=== PATIENT | female | born 1955 | race Caucasian/White ===

== ENCOUNTER 2021-02-23 09:46 | Outpatient (REF) | payer MEDICARE, SELFPAY ==
[2021-02-23 12:28] LABS: Cholesterol 135 mg/dL; HDL Cholesterol 52 mg/dL; LDL Cholesterol Calculated 73 mg/dl; Triglycerides 53 mg/dL
== END 2021-02-23 09:47 | disposition home or self-care (01) ==
LOC: HO.HMGCLDS 09:46
PROVIDERS: PCP Internal Medicine; Visit Provider Internal Medicine
DX: E78.00 Pure hypercholesterolemia, unspecified (principal)
CPT/HCPCS: 36415; 80061

== ENCOUNTER → 2022-02-09 08:34 | Outpatient (BNVA) | payer MEDICARE, SELFPAY | PROVIDERS: PCP Internal Medicine; Referring Provider Internal Medicine; Visit Provider Surgery | DX: N61.1 Abscess of the breast and nipple (principal) | CPT/HCPCS: 10060; 10061; 99202 ==

== ENCOUNTER 2022-02-09 15:24 | Outpatient (REF) | payer MEDICARE, SELFPAY | END 2022-02-09 15:25 | disposition home or self-care (01) | LOC: HO.LNP 15:24 | PROVIDERS: Visit Provider Surgery | DX: N61.1 Abscess of the breast and nipple (principal) | CPT/HCPCS: 87071; 87077; 87186; 87205 ==

== ENCOUNTER 2023-06-14 11:44 | Outpatient (AMB) | payer MEDICARE, SELFPAY ==
[2023-06-14 12:20] VITALS: BP 136/80; PULSE 102; O2SAT 98; BMI 28.9
--- NOTE | 2023-06-14 12:20 | AM.OFFWIN_ITS ---
Intake Vital Signs 06/14/23 12:20 Height 5 ft 2 in Weight 158 lb BMI 28.9 BP 136/80 Blood Pressure Location Rt brachial Position Sitting Pulse 102 H Pulse Source Pulse Oximeter Pulse Oximetry (%) 98 Intake Visit Reasons: EST/ear infection/ lower back pain Intake Note: pt is here for c/o ear infection lower back pain Patient Tobacco Use Status: Never used Tobacco Allergies Codeine Adverse Reaction (Unknown, Uncoded 06/14/23 12:20) Itchy Do you need a note to return to daycare/school/sports/work: Yes HPI EST/ear infection/ lower back pain HPI Details 67-year-old [facility]. Reports a 4 day history of bilateral ear pressure, dry cough, lower back ache, feelings of being hot/cold. Denies any fever when taking temperature. Denies any shortness of breath or GI symptoms. [facility] Medical History Abscess of breast, right Breast CA Breast lump STEMI (ST elevation myocardial infarction) History of mammogram Hyperlipidemia Osteoporosis HTN (hypertension) Surgical History History of lumpectomy of right breast (~2020) History of surgery on wrist H/O colonoscopy No pertinent past surgical history Family History Father Cancer Mother No problems noted. Social History Alcohol intake: current Alcohol intake frequency: holidays/special occasions only Patient Tobacco Use Status: Never used Tobacco Review of Systems Const All systems reviewed & are unremarkable except as noted in HPI and below Physical Exam Vital Signs: Last Vital Signs Pulse 102 H 06/14/23 12:20 BP 136/80 06/14/23 12:20 Pulse Ox 98 06/14/23 12:20 BMI result Body Mass Index 28.9 Const General: cooperative, healthy appearing and comfortable Nutritional Appearance: average body habitus HEENT Head: Yes normal to inspection and Yes normocephalic Ears: hearing grossly normal bilaterally, external ears normal and TM's normal bilaterally General nose exam: Normal external nose present and Normal nasal mucous membranes and turbinates present Face and sinus: Yes normal facial exam and Yes sinuses nontender Mouth: Normal oral and palatal mucosa present and moist mucous membranes Throat: Yes posterior oropharynx normal Neck Neck: Yes no lymphadenopathy Resp Effort & Inspection: normal respiratory effort, able to speak in complete sentences and Actively coughing Quality: dry Auscultation: clear to auscultation bilaterally Cardio Jugular venous distension: no JVD Palpation: normal PMI Rate: regular rate Rhythm: regular rhythm Back/Spine/Pelvis Other: Mild bilateral lumbar paraspinal muscle tenderness. Normal lumbar range of motion. No vertebral tenderness. Negative straight leg raise. Skin General skin exam: no rashes or lesions noted Extrem General: Yes capillary refill normal and Yes no clubbing, cyanosis or edema Psych Appearance: grossly normal Mental Status: mental status grossly normal Speech and movement: Normal speech and movement present Assessment & Plan Assessment & Plan (1) Upper respiratory infection: Code(s): J06.9 - Acute upper respiratory infection, unspecified Qualifiers: URI type: unspecified viral URI Qualified Code(s): J06.9 - Acute upper respiratory infection, unspecified Plan: Symptoms consistent with viral illness. Encouraged she continue to rest, hydrate, utilize Tylenol/Motrin as needed. Has taken home COVID test which was negative. Denies any further viral testing. If she does not improve with conservative measures, or symptoms worsen or new symptoms develop, she should return to the clinic for further evaluation. (2) Spasm of muscle of lower back: Code(s): M62.830 - Muscle spasm of back Plan: She has had a persistent dry cough, which is most severe at nighttime. I will start her on benzonatate for this. She also has some tightness/tenderness in her lower lumbar paraspinal musculature. This may be due to her frequent coughing. Lumbar exam is otherwise normal. I will start her on a short course of cyclobenzaprine to take at bedtime for these muscle spasms. We reviewed indications, use, possible side effects of medications. She will follow-up with us or PCP if this worsens or does not improve. She agrees to plan. Medications: New cyclobenzaprine Take once a day as needed for lower back muscle pain/spasms. 10 mg PO BEDTIME PRN 7 tabs 0RF muscle spasm 7 days M62.830 - Muscle spasm of back benzonatate Take twice a day as needed for cough. 100 mg PO BID PRN 14 caps 0RF cough 7 days R05.9 - Cough, unspecified Coding Level of Care Code Est Pt Level 3 (13164) Diagnoses Viral upper respiratory tract infection J06.9 URI type: unspecified viral URI Spasm of muscle of lower back M62.830
== END 2023-06-14 12:56 | disposition home or self-care (01) ==
PROVIDERS: PCP Internal Medicine; Visit Provider Nurse Practitioner Family
DX: J06.9 Acute upper respiratory infection, unspecified (principal); M62.830 Muscle spasm of back
CPT/HCPCS: 99213

== ENCOUNTER 2024-02-14 11:34 | Outpatient (AMB) | payer MEDICARE, SELFPAY ==
--- NOTE | 2024-02-14 12:25 | AM.OFFWIN_ITS ---
Intake Vital Signs 02/14/24 12:26 Height 5 ft 2 in BP 130/80 Blood Pressure Location Rt brachial Position Sitting Pulse 80 Pulse Source Pulse Oximeter Temp 99.1 F Temp Source Oral Pulse Oximetry (%) 97 Oxygen Delivery Method Room Air Intake Visit Reasons: EP lft ear hearing loss Intake Note: pt is here for left side hearing loss Patient Tobacco Use Status: Never used Tobacco Allergies Codeine Adverse Reaction (Unknown, Uncoded 02/14/24 12:26) Itchy Do you need a note to return to daycare/school/sports/work: No HPI HPI Comments History of Present Illness Details 68 y/o female patient who presents to [facility] in clinic with c/o hard of hearing on both ears - left worse than right. Reports hearing Muffled sounds on left ear. Denies head trauma or injury. Denies dizziness, headaches, nausea or vomiting. She does endorse feeling dizziness and unbalanced. [facility] Medical History Abscess of breast, right Breast CA Breast lump STEMI (ST elevation myocardial infarction) History of mammogram Hyperlipidemia Osteoporosis HTN (hypertension) Surgical History History of lumpectomy of right breast (~2020) History of surgery on wrist H/O colonoscopy No pertinent past surgical history Family History Father Cancer Mother No problems noted. Social History Alcohol intake: current Alcohol intake frequency: holidays/special occasions only Patient Tobacco Use Status: Never used Tobacco Review of Systems Const All systems reviewed & are unremarkable except as noted in HPI and below Physical Exam Vital Signs: Last Vital Signs Temp 99.1 F 02/14/24 12:26 Pulse 80 02/14/24 12:26 BP 130/80 02/14/24 12:26 Pulse Ox 97 02/14/24 12:26 Oxygen Delivery Method Room Air 02/14/24 12:26 Const General: comfortable and no acute distress Nutritional Appearance: obese Orientation/consciousness: patient oriented x3 HEENT Head: Yes normocephalic Ears: external ears normal and TM abnormal bulging and with fluid behind the TM bilateral; not bullous, not dull, not with effusion, not perforated and not retracted General nose exam: Normal nasal mucous membranes and turbinates present Face and sinus: Yes sinuses nontender Mouth: moist mucous membranes Throat: Yes posterior oropharynx normal Resp Effort & Inspection: normal respiratory effort Auscultation: clear to auscultation bilaterally Cardio Rate: regular rate Rhythm: regular rhythm Neuro General: patient oriented x3 Assessment & Plan Assessment & Plan (1) Decreased hearing of both ears: Code(s): H91.93 - Unspecified hearing loss, bilateral Plan: - Advised to have hearing testing - Fluid behind both ears - Use Decongestant - no signs of infection (2) Vertigo: Code(s): R42 - Dizziness and giddiness Plan: - Prescribed Meclizine. Medications: New pseudoephedrine HCl ER (Long Acting Nasal Decongestant (PSE)) 120 mg PO Q12H 60 tabs 0RF H91.93 - Unspecified hearing loss, bilateral, R42 - Dizziness and giddiness meclizine 25 mg PO BID PRN 30 tabs 0RF dizziness R42 - Dizziness and giddiness Coding Level of Care Code Est Pt Level 3 (88812) Diagnoses Decreased hearing of both ears H91.93 Vertigo R42 Time Spent (min) 15
[2024-02-14 12:26] VITALS: BP 130/80; PULSE 80; TEMP 37.3; O2SAT 97
== END 2024-02-14 13:22 | disposition home or self-care (01) ==
PROVIDERS: PCP Internal Medicine; Visit Provider Nurse Practitioner Family
DX: H91.93 Unspecified hearing loss, bilateral (principal); R42 Dizziness and giddiness
CPT/HCPCS: 99213

== ENCOUNTER 2024-03-04 11:26 | Outpatient (AMB) | payer MEDICARE, SELFPAY ==
--- NOTE | 2024-03-04 11:31 | MHC.PC.OV ---
Vital Signs 03/04/24 11:33 Height 5 ft 2 in Weight 160 lb BMI 29.3 BP 128/84 Blood Pressure Location Lt brachial Position Sitting Pulse 73 Pulse Source Pulse Oximeter Pulse Oximetry (%) 98 Oxygen Delivery Method Room Air Intake Visit Reasons: pe Intake Note: pt is here for annual PE. Bone density 06/14/11. Colonoscopy 03/27/17. Mammogram 02/14/24 Allergies Codeine Adverse Reaction (Unknown, Uncoded 03/04/24 11:51) Itchy Medication List - Last Reconciled 03/04/24 by EFRAIN An atorvastatin 80 mg PO DAILY meclizine 25 mg PO BID PRN metoprolol succinate ER 75 mg PO tamoxifen 20 mg PO DAILY Tobacco use date assessed: 03/04/24 Fall risk assessment: No Falls in past year Dental Screening Dental Screen Date: 03/04/24 Did you have a dental visit in the last 12 months?: Yes Did you have a dental problem in the last 6 months where you did not have access to dental care?: No Was dental information given to patient?: Patient has dentist HPI HPI Comments History of Present Illness Details Patient is a 68-year-old female who I am meeting for the 1st time in for physical exam. Due for bone DEXA scan- will order. Last Colonoscopy was in 2017 with indication for 5 month follow up. Not clear if patient performed this. No records. Will order. Patient is up-to-date with tetanus. She has declined the prevnar 20 vaccine. Has a history of breast cancer right breast, currently being followed by [facility]. Patient is up-to-date on mammogram. She is taking tamoxifen 20mg po daily. History of VA with stem in the OM1 artery- [facility]. Goal of LDL under 70. Taking metoprolol and atorvastatin 80mg. Hypertension- Taking metoprolol 75 mg PO daily. Dizziness and balance problems- Patient was seen in the walk in clinic 3 weeks prior for left ear pain, diminished hearing in left ear, and balance issues. Patient was given referral to speech and hearing. On presentation appointment today she states the ear pain has resolved however she still has diminished hearing on the left side. Has utilize Meclizine with no effect. Patient negative neuro evaluation today, however she does have balance and gait disturbances when tandem walking. Will order labs and CT scan. Patient denies headache, chest pain, dizziness, numbness, nausea, vomiting and diarrhea. Denies any head trauma. [facility] Medical History (Updated 03/04/24 @ 13:14 by EFRAIN An) HTN (hypertension) Abscess of breast, right Breast CA Breast lump STEMI (ST elevation myocardial infarction) History of mammogram Hyperlipidemia Osteoporosis Surgical History History of lumpectomy of right breast (~2020) History of surgery on wrist H/O colonoscopy No pertinent past surgical history Family History Father Cancer Mother No problems noted. Social History Housing: House Alcohol intake: current Alcohol intake frequency: holidays/special occasions only Patient Tobacco Use Status: Former Tobacco user e-Cigarette/Vaping Use: Never Used service: No Current occupational status: retired Current occupational exposures/hazards: No Cognitive needs: No Hearing needs: No Vision needs: Yes Questionnaire PHQ-9 Over the last 2 weeks, how often have you been bothered by any of the following problems? 1. Little interest or pleasure in doing things: not at all 2. Feeling down, depressed, or hopeless: not at all 3. Trouble falling or staying asleep, or sleeping too much: not at all 4. Feeling tired or having little energy: not at all 5. Poor appetite or overeating: not at all 6. Feeling bad about yourself - or that you are a failure or have let yourself or your family down: not at all 7. Trouble concentrating on things, such as reading the newspaper or watching television: not at all 8. Moving or speaking so slowly that other people could have noticed. Or the opposite - being so fidgety or restless that you have been moving around a lot more than usual: not at all 9. Thoughts that you would be better off or of hurting yourself in some way: not at all Total score: 0 Depression Screening Interpretation: Negative Depression Screening Done: Yes 45221 - PHQ-9 Billing: Yes Source: Developed by Drs. Viraj L. DaneMelissa hinson Kurt Kroenke and colleagues, with an educational emir from [employer] AUDIT C Alcohol Use Questionnaire (AUDIT-C) 1. How often do you have a drink containing alcohol?: Never Total Score: 0 GUERDA-7 AMB Questionnaire GUERDA-7 Date GUERDA - 7 assessed: 03/04/24 Feeling nervous, anxious, or on edge: 0 = Not at all Not being able to stop or control worryin = Not at all Worrying too much about different things: 0 = Not at all Trouble relaxin = Not at all Being so restless that it is hard to sit still: 0 = Not at all Becoming easily annoyed or irritable: 0 = Not at all Feeling afraid as if something awful might happen: 0 = Not at all Total GUERDA-7 score (0-4 normal; 5-9 mild; 10-14 moderate; 15-21 severe): 0 Source: Developed by Melissa Murguia Kurt Kroenke and colleagues, with an educational emir from [employer] GUERDA-7 Assessment Billing GUERDA-7 Assessment Tool: GUERDA-7 Assessment 12859 Review of Systems Const All systems reviewed & are unremarkable except as noted in HPI and below Neuro Denies Sensory deficit (Neuro) Physical exam (Primary Care) Vital Signs: Last Vital Signs Pulse 73 03/04/24 11:33 BP 128/84 03/04/24 11:33 Pulse Ox 98 03/04/24 11:33 Oxygen Delivery Method Room Air 03/04/24 11:33 Care Plan Goal for BP management: Blood pressure is controlled. BMI result Body Mass Index 29.3 Tobacco/Smoking Status: Tobacco use Status Tobacco use date assessed 03/04/24 03/04/24 11:41 Patient Tobacco Use Status Former Tobacco user 03/04/24 11:41 e-Cigarette/Vaping Use Never Used 03/04/24 11:41 PHQ-9: PHQ-9 Score PHQ-9: Total score 0 03/04/24 11:47 Depression Screening Interpretation: Negative Forms completed: Health Care Proxy and MOLST Time spent: 16-45 minutes Actual minutes spent: 17 Const General: cooperative and no acute distress Orientation/consciousness: patient oriented x3 Limitations: no limitations HENMT Head: Yes normal to inspection and Yes normocephalic General nose exam: Normal external nose present Face and sinus: Yes normal facial exam Eyes Sclerae: sclerae normal Corneas: corneas normal Pupils: Equal, round and reactive pupils present EOM: EOMs intact bilaterally Direct Ophthalmoscopy: normal light reflex, no photophobia and no papilledema Neck Neck: Yes normal visual inspection and Yes full ROM Chest Chest palpation & inspection: normal inspection of the chest Resp Effort & Inspection: normal respiratory effort Auscultation: clear to auscultation bilaterally Cardio Rate: regular rate Rhythm: regular rhythm Heart sounds: S1 normal heart sound present and S2 normal heart sound present Peripheral pulses: Peripheral pulses 2+ throughout GI Inspection: Yes normal to inspection Auscultation: normal bowel sounds Rectal Exam - Female: deferred General: Yes no CVA tenderness Back/Spine/Pelvis Back: no CVA tenderness Cervical Spine: normal cervical lordosis Thoracic/Lumbar Spine: thoracic and lumbar spine normal to inspection Skin General skin exam: no rashes or lesions noted Neuro General: patient oriented x3, no focal motor deficits, CN's II-XI intact bilaterally, deep tendon reflexes 2+ bilaterally and No Phill Hallpike Cranial nerves: Yes CN's II-XII intact bilaterally, Yes Equal, round and reactive pupils present and Yes Bilaterally intact EOM present Cognition (Neuro): normal cognition Gait exam (Neuro): Other gait observations present (slight balance problems with tandem walking) Motor exam (neuro): 5/5 motor strength present throughout Sensory Exam: double simultaneous stimulation for sensation normal; No Sensory deficit (Neuro) Romberg Test: Negative Psych Thought process: Normal thought process present Thought content: Normal thought content present Insight: Good insight present (Psych) Judgement: Good judgement present (Psych) Assessment and Plan Assessment & Plan (1) Encounter for routine adult physical exam with abnormal findings: Comment: Will order fasting labs. Due for bone DEXA scan- will order. Last Colonoscopy was in 2017 with indication for 5 month follow up. Not clear if patient performed this. No records. Will order. Patient is up-to-date with tetanus. She has declined the prevnar 20 vaccine. Code(s): Z00.01 - Encounter for general adult medical examination with abnormal findings (2) Hearing loss: Comment: Patient has upcoming appointment with speech and hearing in 2 days. Will also refer patient to ENT. Code(s): H91.90 - Unspecified hearing loss, unspecified ear Qualifiers: Hearing loss type: unspecified Laterality: left Qualified Code(s): H91.92 - Unspecified hearing loss, left ear (3) Breast CA: Comment: Patient sees hematology oncology [facility] Code(s): C50.919 - Malignant neoplasm of unspecified site of unspecified female breast Qualifiers: Breast location: unspecified site of breast Estrogen receptor status: unspecified Patient sex: female Laterality: unspecified laterality Qualified Code(s): C50.919 - Malignant neoplasm of unspecified site of unspecified female breast (4) HTN (hypertension): Comment: Control with metoprolol 75 mg p.o. daily. Code(s): I10 - Essential (primary) hypertension Qualifiers: Hypertension type: primary hypertension Qualified Code(s): I10 - Essential (primary) hypertension (5) Balance problem: Comment: Patient negative neuro exam in office today. Negative [place]-Hallpike maneuver. Patient has a slight discoordination with tandem walking. Patient has evaluation with speech and hearing, as well as referral to ear nose throat. Patient will also get ordered CT scan. Code(s): R26.89 - Other abnormalities of gait and mobility Plan: draw labs Plan will follow up with results. Orders: Orders XR DEXA axial skeleton Today Z78.0 - Asymptomatic menopausal state TSH reflex Free T4 Today Z13.29 - Encounter for screening for other suspected endocrine disorder Complete Blood Count Auto Diff Today Z13.0 - Encounter for screening for diseases of the blood and blood-forming organs and certain disorders involving the immune mechanism Comprehensive Met. Panel Today Z91.89 - Other specified personal risk factors, not elsewhere classified Vitamin D 25-OH (D2 and D3) Today Z13.21 - Encounter for screening for nutritional disorder Vitamin B6 Today Z13.21 - Encounter for screening for nutritional disorder Vitamin B12 Today Z13.21 - Encounter for screening for nutritional disorder UA CC w/rflx Micro + Cult Today Z13.89 - Encounter for screening for other disorder Lipid Panel Today Z13.220 - Encounter for screening for lipoid disorders Referrals Gastroenterology Referral Z12.11 - Encounter for screening for malignant neoplasm of colon Ear/Nose/Throat Referral H91.90 - Unspecified hearing loss, unspecified ear Coding Level of Care Code Est Pt Prev Care >65y(54697) Diagnoses Encounter for routine adult physical exam with abnormal findings Z00.01 Hearing loss of left ear, unspecified hearing loss type H91.92 Hearing loss type: unspecified Laterality: left Malignant neoplasm of female breast, unspecified estrogen receptor status, unspecified laterality, unspecified site of breast C50.919 Breast location: unspecified site of breast Estrogen receptor status: unspecified Patient sex: female Laterality: unspecified laterality Primary hypertension I10 Hypertension type: primary hypertension Balance problem R26.89 Additional Codes GUERDA-7 Assessment Billing - GUERDA-7 Assessment Tool: GUERDA-7 Assessment 56897 ([id number]) Vital Signs *Quality* - Time spent: 16-45 minutes ([id number]) Time Spent (min) 35
[2024-03-04 11:33] VITALS: BP 128/84; PULSE 73; O2SAT 98; BMI 29.3
== END 2024-03-04 14:48 | disposition home or self-care (01) ==
PROVIDERS: PCP Internal Medicine; Visit Provider Nurse Practitioner Primary Care
DX: Z00.00 Encounter for general adult medical examination without abnormal findings (principal); H91.92 Unspecified hearing loss, left ear; C50.919 Malignant neoplasm of unspecified site of unspecified female breast; I10 Essential (primary) hypertension; R26.89 Other abnormalities of gait and mobility
CPT/HCPCS: 99397; 99497

== ENCOUNTER 2024-03-05 08:49 | Outpatient (REF) | payer MEDICARE, SELFPAY ==
[2024-03-05 10:15] LABS: MANUAL DIFF FLAG NO
[2024-03-05 10:26] LABS: Basophils Percent Auto 0.3 % (0-2); Eosinophils Absolute Auto 0.2 X10*3/uL (0.0-0.4); Eosinophils Percent Auto 2.2 % (0-4); Hematocrit 43.4 % (37.0-47.0); Hemoglobin 15.1 g/dl (12.0-16.0); Imm Gran Abs Auto 0.02 X10*3/uL (0.00-0.03); Imm Gran Pct Auto 0.3 % (0.0-0.4); Lymphocytes Absolute Auto 1.3 X10*3/uL (1.2-4.9); Lymphocytes Percent Auto 18.2 % (20-40); Mean Corpuscular HGB Conc 34.8 g/dl (31.0-35.0); Mean Corpuscular Hemoglobin 30.4 pg (27.0-33.0); Mean Corpuscular Volume 87.5 fL (80.0-98.0); Mean Platelet Volume 9.6 fL (9.4-12.3); Monocytes Absolute Auto 0.4 X10*3/uL (0.1-1.2); Monocytes Percent Auto 5.1 % (2-11); Neutrophils Absolute Auto 5.1 x10*3/uL (2.0-8.3); Neutrophils Percent Auto 73.9 % (45-73); Platelet Count 182 X10*3/uL (160-400); Red Blood Count 4.96 X10*6/uL (4.20-5.50); Red Cell Distribution Width 12.3 % (11.0-16.0); White Blood Count 6.9 X10*3/uL (4.8-10.8)
[2024-03-05 10:32] LABS: Appearance Urine Clear; Color Urine Yellow; Glucose Urine UA Negative (Negative); Leukocyte Esterase Urine Negative (Negative); Nitrite Urine Negative (Negative); UMIC TRIGGER UACC YES; Urine Blood Small (1+) (Negative); Urine Ketones Negative (Negative); Urine Protein Negative (Neg-Trace)
[2024-03-05 10:37] LABS: Bacteria Urine None Seen (None Seen); Hyaline Casts Urine 0-2 /LPF (0-2); RBC Urine >20 /HPF (0-2); Squamous Epithelial Cell Urine 0-2 /HPF (0-2); WBC Urine 0-5 /HPF (0-5)
[2024-03-05 11:02] LABS: Alanine Aminotransferase 16 U/L (0-31); Albumin Level 4.1 g/dL (3.5-5.0); Alkaline Phosphatase 63 U/L (39-117); Anion Gap 11 (12-20); Aspartate Amino Transferase 17 U/L (5-31); Bilirubin Total 0.5 mg/dL (0.0-1.0); Blood Urea Nitrogen 18 mg/dL (9-16); Calcium 9.1 mg/dL (8.4-10.2); Carbon Dioxide 29 mmol/L (22-29); Chloride 109 mmol/L (96-108); Cholesterol 167 mg/dL (<200); Estimated Glomerular Filt Rate > 60; Glucose Random 104 mg/dL (60-115); HDL Cholesterol 53 mg/dL (>40); LDL Cholesterol Calculated 91 mg/dL (<100); Potassium 4.2 mmol/L (3.3-5.1); Sodium 145 mmol/L (135-145); Total Protein 6.7 g/dL (6.5-8.0); Triglycerides 119 mg/dL (<150)
[2024-03-05 11:08] LABS: TSH reflex Free T4 2.08 uIU/mL (0.32-4.0)
[2024-03-05 12:20] LABS: Vitamin B12 473 pg/mL (200-900)
[2024-03-09 13:14] LABS: Vitamin D 25-OH, D2 <4 ng/mL; Vitamin D 25-OH, D3 41 ng/mL; Vitamin D 25-OH, Total 41 ng/mL (30-100)
== END 2024-03-05 08:50 | disposition home or self-care (01) ==
LOC: HO.HMGCLDS 08:49
PROVIDERS: PCP Internal Medicine; Visit Provider Nurse Practitioner Primary Care
DX: Z13.21 Encounter for screening for nutritional disorder (principal); R26.89 Other abnormalities of gait and mobility; Z13.29 Encounter for screening for other suspected endocrine disorder; Z13.0 Encounter for screening for diseases of the blood and blood-forming organs and certain disorders involving the immune mechanism; Z91.89 Other specified personal risk factors, not elsewhere classified; Z13.220 Encounter for screening for lipoid disorders
CPT/HCPCS: 36415; 80053; 80061; 81001; 82306; 82607; 84207; 84443; 85025

== ENCOUNTER 2024-03-06 15:40 | Outpatient (REF) | payer MEDICARE, SELFPAY | END 2024-03-06 15:41 | disposition home or self-care (01) | LOC: HO.SH 15:40 | PROVIDERS: Visit Provider Internal Medicine | DX: Z01.118 Encounter for examination of ears and hearing with other abnormal findings (principal); H90.3 Sensorineural hearing loss, bilateral | CPT/HCPCS: 92557; 92567 ==

== ENCOUNTER 2024-03-11 09:42 | Outpatient (REF) | payer MEDICARE, SELFPAY ==
[2024-03-11 12:15] LABS: Urine Cytology See Pathology rpt
[2024-03-11 12:27] LABS: Appearance Urine Hazy; Color Urine Yellow; Glucose Urine UA Negative (Negative); Leukocyte Esterase Urine Negative (Negative); Nitrite Urine Negative (Negative); Specific Gravity - Urine >= 1.030 (1.005-1.025); Urine Blood Negative (Negative); Urine Ketones Trace mg/dL (Negative); Urine Protein Negative (Neg-Trace)
== END 2024-03-11 09:43 | disposition home or self-care (01) ==
LOC: HO.HMGCLDS 09:42
PROVIDERS: PCP Internal Medicine; Visit Provider Nurse Practitioner Primary Care
DX: R31.9 Hematuria, unspecified (principal); Z13.89 Encounter for screening for other disorder
CPT/HCPCS: 81003; 88112

== ENCOUNTER 2024-04-17 10:38 | Outpatient (AMB) | payer MEDICARE, SELFPAY ==
[2024-04-17 10:55] VITALS: BP 125/75; PULSE 82; O2SAT 97; BMI 28.9
--- NOTE | 2024-04-17 10:55 | MHC.PC.OV ---
Vital Signs 04/17/24 10:55 Height 5 ft 2 in Weight 158 lb BMI 28.9 BP 125/75 Blood Pressure Location Rt brachial Position Sitting Pulse 82 Pulse Source Pulse Oximeter Pulse Oximetry (%) 97 Oxygen Delivery Method Room Air Intake Visit Reasons: Hospital follow up Intake Note: Pt is here today for Hospital follow up visit. Allergies Codeine Adverse Reaction (Unknown, Uncoded 04/17/24 11:10) Itchy Medication List - Last Reconciled 04/17/24 by Kelly Lyons MD atorvastatin 80 mg PO DAILY metoprolol succinate ER 75 mg PO tamoxifen 20 mg PO DAILY Tobacco use date assessed: 04/17/24 Fall risk assessment: 2 + Falls in past year Last assessed Fall Risk: 04/17/24 Dental Screening Dental Screen Date: 04/17/24 Did you have a dental visit in the last 12 months?: Yes Did you have a dental problem in the last 6 months where you did not have access to dental care?: No Was dental information given to patient?: Patient has dentist HPI Hospital follow up HPI Details Patient presents for the follow-up of hospitalization at [facility]. She was admitted with a complaint of unsteady gait , underwent neuro workup including CT and MRI of the brain consistent with normal-pressure hydrocephalus. 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 She has started physical therapy as outpatient. Patient reports improved gait and denies headaches weakness or numbness in extremities or change in bladder or bowel function. She has been taking atorvastatin and metoprolol for history of coronary artery disease and tamoxifen for history of breast cancer. [facility] Medical History (Updated 04/17/24 @ 13:03 by Kelly Lyons MD) Hyperlipidemia Acute hearing loss HTN (hypertension) Breast CA STEMI (ST elevation myocardial infarction) History of mammogram Osteoporosis Surgical History History of lumpectomy of right breast (~2020) History of surgery on wrist H/O colonoscopy No pertinent past surgical history Family History Father Cancer Mother No problems noted. Social History Housing: House Alcohol intake: current Alcohol intake frequency: holidays/special occasions only Patient Tobacco Use Status: Former Tobacco user e-Cigarette/Vaping Use: Never Used service: No Current occupational status: retired Current occupational exposures/hazards: No Cognitive needs: No Hearing needs: No Vision needs: Yes Questionnaire PHQ-9 Over the last 2 weeks, how often have you been bothered by any of the following problems? 1. Little interest or pleasure in doing things: several days 2. Feeling down, depressed, or hopeless: not at all 3. Trouble falling or staying asleep, or sleeping too much: not at all 4. Feeling tired or having little energy: not at all 5. Poor appetite or overeating: not at all 6. Feeling bad about yourself - or that you are a failure or have let yourself or your family down: not at all 7. Trouble concentrating on things, such as reading the newspaper or watching television: not at all 8. Moving or speaking so slowly that other people could have noticed. Or the opposite - being so fidgety or restless that you have been moving around a lot more than usual: not at all 9. Thoughts that you would be better off or of hurting yourself in some way: not at all Total score: 1 Depression Screening Interpretation: Negative Depression Screening Done: Yes Source: Developed by Drs. Viraj Vela, Melissa Alexander, Damian Kenny and colleagues, with an educational emir from [employer] Thrive Questionnaire Date Thrive assessed: 04/17/24 I am a: Patient What is your living situation today?: I have a steady place to live Within the past 12 months, did the food you bought not last and you didn't have the money to get more?: Never true Within the past 12 months, did you worry whether your food would run out before you got money to buy more?: Never true Do you have trouble paying for medicines?: No Do you have trouble getting transportation to medical appointments?: I choose not to answer this question Do you have trouble paying your heating and electricity bill?: I choose not to answer this question Do you have trouble taking care of your child, family member or friend?: No Do you have trouble with day-to-day activities such as bathing, preparing meals, shopping, managing finances, etc.?: No Are you currently unemployed and looking for a job?: No Are you interested in more education?: No Please select the resources that you would like help with: Housing/Long-Term Currently or been in a relationship where the following occur: No concerns reported THRIVE Score: 0 AUDIT C Alcohol Use Questionnaire (AUDIT-C) 1. How often do you have a drink containing alcohol?: Never 3. How often do you have six or more drinks on one occasion?: Never Total Score: 0 GUERDA-7 AMB Questionnaire GUERDA-7 Date GUERDA - 7 assessed: 04/17/24 Feeling nervous, anxious, or on edge: 0 = Not at all Not being able to stop or control worryin = Several days Worrying too much about different things: 0 = Not at all Trouble relaxin = Not at all Being so restless that it is hard to sit still: 0 = Not at all Becoming easily annoyed or irritable: 0 = Not at all Feeling afraid as if something awful might happen: 0 = Not at all Total GUERDA-7 score (0-4 normal; 5-9 mild; 10-14 moderate; 15-21 severe): 1 Source: Developed by Drs. Viraj Vela, Melissa Alexander, Damian Kenny and colleagues, with an educational emir from [employer] GUERDA-7 Assessment Billing GUERDA-7 Assessment Tool: GUERDA-7 Assessment 29764 Review of Systems Const All systems reviewed & are unremarkable except as noted in HPI and below Eyes Reports no additional complaints ENT Reports no additional complaints Card Reports no additional complaints Resp Reports no additional complaints GI Reports no additional complaints Reports no additional complaints Physical exam (Primary Care) Vital Signs: Last Vital Signs Pulse 82 04/17/24 10:55 Pulse Ox 97 04/17/24 10:55 Oxygen Delivery Method Room Air 04/17/24 10:55 BMI result Body Mass Index 28.9 Tobacco/Smoking Status: Tobacco use Status Tobacco use date assessed 04/17/24 04/17/24 10:58 Patient Tobacco Use Status Former Tobacco user 04/17/24 10:56 e-Cigarette/Vaping Use Never Used 04/17/24 10:56 PHQ-9: PHQ-9 Score PHQ-9: Total score 1 04/17/24 11:14 Depression Screening Interpretation: Negative Thrive Assessment: Date of Thrive Assessment Date Thrive assessed 04/17/24 04/17/24 11:14 Currently or been in a relationship where the following occur: No concerns reported Const General: no acute distress HENMT Head: Yes normal to inspection General nose exam: Normal external nose present Neck Neck: Yes no lymphadenopathy and Yes supple Resp Effort & Inspection: normal respiratory effort Auscultation: clear to auscultation bilaterally Cardio Rhythm: regular rhythm Heart sounds: S1 normal heart sound present and S2 normal heart sound present GI Inspection: Yes normal to inspection Palpation (GI): Soft to palpation Percussion: Yes normal to percussion Auscultation: normal bowel sounds Neuro Cranial nerves: Yes CN's II-XII intact bilaterally Gait exam (Neuro): Normal gait present Motor exam (neuro): 5/5 motor strength present throughout Romberg Test: Negative Assessment and Plan Assessment & Plan (1) Normal pressure hydrocephalus: Comment: [facility] admission, 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[employer] shunt 03/24/2024 , improved gait, follow-up with Neurology at [facility] Code(s): G91.2 - (Idiopathic) normal pressure hydrocephalus Plan: Follow-up with neurology for a repeat CT (2) Acute hearing loss: Comment: 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 ,MR [facility] 03/2024, f/u ENT Code(s): H91.90 - Unspecified hearing loss, unspecified ear Plan: Follow-up with ENT (3) Lung nodules: Comment: CT [facility] 03/21/24 as scattered indeterminate lung nodules up to 5 mm right upper lobe, repeat CT in 3-6 months recommended Code(s): R91.8 - Other nonspecific abnormal finding of lung field Plan: Patient will need a repeat CT in 3-6 months (4) Thickened endometrium: Comment: Pelvic CT [facility] 03/2024 Code(s): R93.89 - Abnormal findings on diagnostic imaging of other specified body structures Plan: Schedule pelvic ultrasound (5) HTN (hypertension): Comment: Control with metoprolol 75 mg p.o. daily. Code(s): I10 - Essential (primary) hypertension Qualifiers: Hypertension type: primary hypertension Qualified Code(s): I10 - Essential (primary) hypertension Plan: Continue metoprolol (6) Hyperlipidemia: Code(s): E78.5 - Hyperlipidemia, unspecified Plan: Continue statin (7) STEMI (ST elevation myocardial infarction): Comment: s/p RODOLFO in [facility]AD 05/2017, follow-up with [facility] Cardiology Code(s): I21.3 - ST elevation (STEMI) myocardial infarction of unspecified site Plan: Follow-up with cardiology Orders: Orders US pelvic and transvaginal Today R93.89 - Abnormal findings on diagnostic imaging of other specified body structures Coding Level of Care Code Est Pt Level 4 (62645) Diagnoses Normal pressure hydrocephalus G91.2 Acute hearing loss H91.90 Lung nodules R91.8 Thickened endometrium R93.89 Primary hypertension I10 Hypertension type: primary hypertension Hyperlipidemia E78.5 STEMI (ST elevation myocardial infarction) I21.3 Additional Codes GUERDA-7 Assessment Billing - GUERDA-7 Assessment Tool: GUERDA-7 Assessment 49063 ([id number])
== END 2024-04-17 11:36 | disposition home or self-care (01) ==
PROVIDERS: PCP Nurse Practitioner Primary Care; Visit Provider Internal Medicine
DX: G91.2 (Idiopathic) normal pressure hydrocephalus (principal); R91.8 Other nonspecific abnormal finding of lung field; I25.2 Old myocardial infarction; R93.89 Abnormal findings on diagnostic imaging of other specified body structures; I10 Essential (primary) hypertension; E78.5 Hyperlipidemia, unspecified
CPT/HCPCS: 99214

== ENCOUNTER 2024-04-26 15:09 | Outpatient (REF) | payer MEDICARE, SELFPAY ==
--- NOTE | ~2024-04-26 | US_ITS ---
EXAM: Pelvic Ultrasound CLINICAL INDICATION: Thickened endometrium. Patient on tamoxifen. COMPARISON: None available TECHNIQUE: The pelvis was evaluated using transabdominal and transvaginal imaging. FINDINGS: The uterus measures 8.3 x 5.4 x 7.9 cm in longitudinal by AP by transverse dimension. The endometrial stripe is heterogeneous and measures 3.0 cm. Some cystic foci are suspected within the endometrium. 2 discrete fibroids are noted, largest measuring approximately 2.3 cm. Nabothian cysts are identified within the cervix. Neither ovary was clearly visualized. There are no abnormal adnexal masses. There is no free fluid in the pelvis. US/US pelvic and transvaginal IMPRESSION: 1. Thickened endometrium which is heterogeneous in appearance. There are some cystic foci suspected within the endometrium. Direct inspection/biopsy may be warranted. 2. Two discrete fibroids are noted, largest measuring approximately 2.3 cm. 3. Neither ovary clearly visualized. Electronically signed by: Rey Subramanian MD 05/16/2024 07:35 AM EDT
== END 2024-04-26 15:10 | disposition home or self-care (01) ==
LOC: HO.HMGCX 15:09
PROVIDERS: PCP Internal Medicine; Visit Provider Internal Medicine
DX: R93.89 Abnormal findings on diagnostic imaging of other specified body structures (principal)
CPT/HCPCS: 76830; 76856

== ENCOUNTER 2024-05-02 08:03 | Outpatient (AMB) | payer MEDICARE, SELFPAY ==
--- NOTE | 2024-05-02 08:06 | A.OFFPC_ITS ---
Vital Signs 05/02/24 08:07 Height 5 ft 2 in Weight 159 lb BMI 29.1 BP 139/88 Blood Pressure Location Rt brachial Position Sitting Pulse 89 Pulse Source Pulse Oximeter Pulse Oximetry (%) 99 Oxygen Delivery Method Room Air Intake Visit Reasons: Elevated BP Intake Note: Pt is here today for a sick visit. Pt c/o elevated BP. Allergies Codeine Adverse Reaction (Unknown, Uncoded 05/02/24 08:07) Itchy Medication List - Last Reconciled 05/02/24 by Kelly Lyons MD amlodipine 2.5 mg PO DAILY atorvastatin 80 mg PO DAILY metoprolol succinate ER 100 mg PO tamoxifen 20 mg PO DAILY Tobacco use date assessed: 04/17/24 Dental Screening Dental Screen Date: 04/17/24 HPI Elevated BP HPI Details Patient presents complaining of increase blood pressure for the last 2 weeks. She has been taking metoprolol regularly. She denies any increased stress or change in her diet. [facility] Medical History Hyperlipidemia Acute hearing loss HTN (hypertension) Breast CA STEMI (ST elevation myocardial infarction) History of mammogram Osteoporosis Surgical History History of lumpectomy of right breast (~2020) History of surgery on wrist H/O colonoscopy No pertinent past surgical history Family History Father Cancer Mother No problems noted. Social History Housing: House Alcohol intake: current Alcohol intake frequency: holidays/special occasions only Patient Tobacco Use Status: Former Tobacco user e-Cigarette/Vaping Use: Never Used service: No Current occupational status: retired Current occupational exposures/hazards: No Cognitive needs: No Hearing needs: No Vision needs: Yes Questionnaire PHQ-9 Over the last 2 weeks, how often have you been bothered by any of the following problems? 1. Little interest or pleasure in doing things: several days 2. Feeling down, depressed, or hopeless: not at all 3. Trouble falling or staying asleep, or sleeping too much: not at all 4. Feeling tired or having little energy: not at all 5. Poor appetite or overeating: not at all 6. Feeling bad about yourself - or that you are a failure or have let yourself or your family down: not at all 7. Trouble concentrating on things, such as reading the newspaper or watching television: not at all 8. Moving or speaking so slowly that other people could have noticed. Or the opposite - being so fidgety or restless that you have been moving around a lot more than usual: not at all 9. Thoughts that you would be better off or of hurting yourself in some way: not at all Total score: 1 Depression Screening Interpretation: Negative Depression Screening Done: Yes Source: Developed by Drs. Viraj Vela, Melissa Alexander, Damian Kenny and colleagues, with an educational emir from [employer]. Thrive Questionnaire Date Thrive assessed: 05/02/24 I am a: Patient What is your living situation today?: I have a steady place to live Within the past 12 months, did the food you bought not last and you didn't have the money to get more?: Never true Within the past 12 months, did you worry whether your food would run out before you got money to buy more?: Never true Do you have trouble paying for medicines?: No Do you have trouble getting transportation to medical appointments?: I choose not to answer this question Do you have trouble paying your heating and electricity bill?: I choose not to answer this question Do you have trouble taking care of your child, family member or friend?: No Do you have trouble with day-to-day activities such as bathing, preparing meals, shopping, managing finances, etc.?: No Are you currently unemployed and looking for a job?: No Are you interested in more education?: No Please select the resources that you would like help with: None Currently or been in a relationship where the following occur: No concerns reported THRIVE Score: 0 AUDIT C Alcohol Use Questionnaire (AUDIT-C) 1. How often do you have a drink containing alcohol?: Monthly or less 2. How many drinks containing alcohol do you have on a typical day when you are drinking?: 1 or 2 3. How often do you have six or more drinks on one occasion?: Never Total Score: 1 GUERDA-7 AMB Questionnaire GUERDA-7 Date GUERDA - 7 assessed: 05/02/24 Feeling nervous, anxious, or on edge: 0 = Not at all Not being able to stop or control worryin = Several days Worrying too much about different things: 0 = Not at all Trouble relaxin = Not at all Being so restless that it is hard to sit still: 0 = Not at all Becoming easily annoyed or irritable: 0 = Not at all Feeling afraid as if something awful might happen: 0 = Not at all Total GUERDA-7 score (0-4 normal; 5-9 mild; 10-14 moderate; 15-21 severe): 1 Source: Developed by Drs. Viraj Vela, Melissa Alexander, Damian Kenny and colleagues, with an educational emir from [employer]. GUERDA-7 Assessment Billing GUERDA-7 Assessment Tool: GUERDA-7 Assessment 26131 Review of Systems Const All systems reviewed & are unremarkable except as noted in HPI and below ENT Reports no additional complaints Card Reports no additional complaints Resp Reports no additional complaints GI Reports no additional complaints Physical exam (Primary Care) Vital Signs: Last Vital Signs Pulse 89 05/02/24 08:07 Pulse Ox 99 05/02/24 08:07 Oxygen Delivery Method Room Air 05/02/24 08:07 BMI result Body Mass Index 29.1 Tobacco/Smoking Status: Tobacco use Status Tobacco use date assessed 04/17/24 05/02/24 08:10 Patient Tobacco Use Status Former Tobacco user 05/02/24 08:10 e-Cigarette/Vaping Use Never Used 05/02/24 08:10 PHQ-9: PHQ-9 Score PHQ-9: Total score 1 05/02/24 08:10 Depression Screening Interpretation: Negative Thrive Assessment: Date of Thrive Assessment Date Thrive assessed 05/02/24 05/02/24 08:10 Currently or been in a relationship where the following occur: No concerns reported Const General: no acute distress HENMT Head: Yes normal to inspection Eyes General: appearance normal, both eyes and all related structures Neck Neck: Yes supple Resp Effort & Inspection: normal respiratory effort Auscultation: clear to auscultation bilaterally Cardio Rhythm: regular rhythm Heart sounds: S1 normal heart sound present and S2 normal heart sound present GI Inspection: Yes normal to inspection Palpation (GI): Soft to palpation Assessment and Plan Assessment & Plan (1) HTN (hypertension): Comment: Control with metoprolol 75 mg p.o. daily. Code(s): I10 - Essential (primary) hypertension Qualifiers: Hypertension type: primary hypertension Qualified Code(s): I10 - Essential (primary) hypertension Plan: Increase metoprolol to 100 mg a day and add 2.5 mg of amlodipine. Low-sodium diet increase physical activity discussed with the patient. Follow-up in 1 week for nurse visit for a blood pressure check and in 1 month for an office visit Medications: New amlodipine 2.5 mg PO DAILY 90 tabs 0RF metoprolol succinate ER 100 mg PO DAILY 90 tabs 0RF Coding Level of Care Code Est Pt Level 3 (13699) Diagnoses Primary hypertension I10 Hypertension type: primary hypertension Additional Codes GUERDA-7 Assessment Billing - GUERDA-7 Assessment Tool: GUERDA-7 Assessment 41547 ([id number])
[2024-05-02 08:07] VITALS: BP 139/88; PULSE 89; O2SAT 99; BMI 29.1
== END 2024-05-02 08:32 | disposition home or self-care (01) ==
PROVIDERS: PCP Internal Medicine; Visit Provider Internal Medicine
DX: I10 Essential (primary) hypertension (principal)
CPT/HCPCS: 99213

== ENCOUNTER 2024-05-28 11:24 | Outpatient (REF) | payer MEDICARE, SELFPAY ==
--- NOTE | ~2024-05-28 | MM_ITS ---
EXAMINATION: BONE DENSITOMETRY CLINICAL INDICATION: Asymptomatic menopausal state. COMPARISON: Baseline BD dated 11/25/2016. TECHNIQUE: Using a [employer] DXA System (software version: 13.1) manufactured by [employer] dual-energy x-ray absorptiometry was performed of the lumbar spine and left hip. The images are of good technical quality. Summary results are attached. FINDINGS: LEFT FEMUR, NECK: Current: BMD 0.781 g/cm2, Z-score -0.4, T-score -1.8, osteopenia. Baseline: BMD 0.802 g/cm2. LEFT FEMUR, TOTAL: Current: BMD 0.834 g/cm2, Z-score -0.2, T-score -1.4, osteopenia, 1.3% decrease from baseline (<5% change is not significant). Baseline: BMD 0.845 g/cm2. AP SPINE L1-L4: Current: BMD 0.813 g/cm2, Z-score -1.7, T-score -3.1, osteoporosis, 4.6% decrease from baseline (<5% change is not significant). Baseline: BMD 0.852 g/cm2. IDENTIFIED RISK FACTORS: Menopause, low calcium intake, recurrent falls. HISTORY OF FRACTURE: None listed. MEDICATIONS: Calcium supplements or multivitamin, vitamin D, ERT/SERMS. MM/XR DEXA axial skeleton IMPRESSION: 1. DIAGNOSIS: Osteoporosis based on the lowest T-score value of -3.1 in the lumbar spine applying World Health Organization criteria. 2. 10-YEAR FRACTURE RISK PREDICTION, FRAX: According to the guidelines, FRAX calculation should only be performed on patients in the osteopenia bone density category. Therefore, FRAX was not performed on this patient. 3. Treatment Recommendations: NOF guidelines recommend consideration for treatment in postmenopausal women and men age 50 and older presenting with the following: -A hip or vertebral (clinical or morphometric) fracture. -T-score less than or equal to -2.5 at the femoral neck or spine after appropriate evaluation to exclude secondary causes. -Low bone mass at the hip or spine and a 10-year fracture probability by FRAX of greater than or equal to 3% for hip fracture or greater than or equal to 20% for major osteoporotic fracture based on the [place] adapted WHO algorithm. 4. Other Recommendations: All treatment decisions require clinical judgment and consideration of individual patient factors, including patient preferences, comorbidities, previous drug use, risk factors not captured in the FRAX model (e.g. frailty, falls, vitamin D deficiency, increased bone turnover, interval significant decline in bone density) and possible under or overestimation of fracture risk by FRAX. Additional medical evaluation for secondary cause of low bone mineral density may be appropriate. FUTURE SCAN RECOMMENDATION: People with diagnosed cases of osteoporosis or at high risk for fracture should have regular bone mineral density tests. For patients eligible for Medicare, routine testing is allowed once every 2 years. The testing frequency can be increased to one year for patients who have rapidly progressing disease, those who are receiving or discontinuing medical therapy to restore bone mass, or have additional risk factors. Electronically signed by: Bubba Armas MD 05/30/2024 01:48 PM EDT
== END 2024-05-28 11:25 | disposition home or self-care (01) ==
LOC: HO.MAMMO 11:24
PROVIDERS: PCP Internal Medicine; Visit Provider Internal Medicine
DX: Z13.820 Encounter for screening for osteoporosis (principal); Z78.0 Asymptomatic menopausal state
CPT/HCPCS: 77080

== ENCOUNTER 2024-06-05 09:59 | Outpatient (AMB) | payer MEDICARE, SELFPAY ==
[2024-06-05 10:08] VITALS: BP 122/74; PULSE 77; O2SAT 99; BMI 29.6
--- NOTE | 2024-06-05 10:08 | A.OFFPC_ITS ---
Vital Signs 06/05/24 10:08 Height 5 ft 2 in Weight 162 lb BMI 29.6 BP 122/74 Blood Pressure Location Lt brachial Position Sitting Pulse 77 Pulse Source Pulse Oximeter Pulse Oximetry (%) 99 Oxygen Delivery Method Room Air Intake Visit Reasons: 1 Month Follow Up Intake Note: Pt is here today for 1 month follow up visit on BP. Allergies Codeine Adverse Reaction (Unknown, Uncoded 06/05/24 10:13) Itchy Medication List - Last Reconciled 06/05/24 by Kelly Lyons MD amlodipine 2.5 mg PO DAILY atorvastatin 80 mg PO DAILY metoprolol succinate ER 100 mg PO DAILY tamoxifen 20 mg PO DAILY Tobacco use date assessed: 06/05/24 Fall risk assessment: No Falls in past year Dental Screening Dental Screen Date: 04/17/24 HPI 1 Month Follow Up HPI Details Patient presents for the follow-up on hypertension hyperlipidemia controlled on current medications. [facility] Medical History (Updated 06/05/24 @ 11:09 by Kelly Lyons MD) Hyperlipidemia Acute hearing loss HTN (hypertension) Breast CA STEMI (ST elevation myocardial infarction) History of mammogram Osteoporosis Surgical History History of lumpectomy of right breast (~2020) History of surgery on wrist H/O colonoscopy No pertinent past surgical history Family History Father Cancer Mother No problems noted. Social History Housing: House Alcohol intake: current Alcohol intake frequency: holidays/special occasions only Patient Tobacco Use Status: Former Tobacco user e-Cigarette/Vaping Use: Never Used service: No Current occupational status: retired Current occupational exposures/hazards: No Cognitive needs: No Hearing needs: No Vision needs: Yes Questionnaire PHQ-9 Over the last 2 weeks, how often have you been bothered by any of the following problems? 3. Trouble falling or staying asleep, or sleeping too much: not at all Source: Developed by Drs. Viraj Vela, Melissa Alexander, Damian Kenny and colleagues, with an educational emir from [employer]. Thrive Questionnaire Date Thrive assessed: 04/10/24 I am a: Patient What is your living situation today?: I have a steady place to live Within the past 12 months, did the food you bought not last and you didn't have the money to get more?: Never true Within the past 12 months, did you worry whether your food would run out before you got money to buy more?: Never true Do you have trouble paying for medicines?: No Do you have trouble getting transportation to medical appointments?: I choose not to answer this question Do you have trouble paying your heating and electricity bill?: I choose not to answer this question Do you have trouble taking care of your child, family member or friend?: No Do you have trouble with day-to-day activities such as bathing, preparing meals, shopping, managing finances, etc.?: No Are you currently unemployed and looking for a job?: No Are you interested in more education?: No Please select the resources that you would like help with: None Currently or been in a relationship where the following occur: No concerns reported THRIVE Score: 0 GUERDA-7 AMB Questionnaire GUERDA-7 Date GUERDA - 7 assessed: 05/02/24 Source: Developed by Drs. Viraj Vela, Melissa Alexander, Damian Kenny and colleagues, with an educational emir from [employer]. Review of Systems Const All systems reviewed & are unremarkable except as noted in HPI and below ENT Reports no additional complaints Card Reports no additional complaints Resp Reports no additional complaints GI Reports no additional complaints Reports no additional complaints Physical exam (Primary Care) Vital Signs: Last Vital Signs Pulse 77 06/05/24 10:08 BP 122/74 06/05/24 10:08 Pulse Ox 99 06/05/24 10:08 Oxygen Delivery Method Room Air 06/05/24 10:08 BMI result Body Mass Index 29.6 Tobacco/Smoking Status: Tobacco use Status Tobacco use date assessed 06/05/24 06/05/24 10:14 Patient Tobacco Use Status Former Tobacco user 06/05/24 10:09 e-Cigarette/Vaping Use Never Used 06/05/24 10:09 Thrive Assessment: Date of Thrive Assessment Date Thrive assessed 04/10/24 06/05/24 10:09 Currently or been in a relationship where the following occur: No concerns reported Const General: no acute distress HENMT Mouth: Normal oral and palatal mucosa present Neck Neck: Yes supple Resp Effort & Inspection: normal respiratory effort Auscultation: clear to auscultation bilaterally Cardio Rhythm: regular rhythm Heart sounds: S1 normal heart sound present and S2 normal heart sound present Assessment and Plan Assessment & Plan (1) HTN (hypertension): Code(s): I10 - Essential (primary) hypertension Qualifiers: Hypertension type: primary hypertension Qualified Code(s): I10 - Essential (primary) hypertension Plan: Continue current medications follow-up in 3 months (2) Hyperlipidemia: Code(s): E78.5 - Hyperlipidemia, unspecified Plan: Continue statin low-cholesterol diet follow-up in 3 months with a fasting labs before (3) Osteoporosis: Comment: DEXA 2020, DEXA 04/2024 T score -3.1, pt refused treatment Code(s): M81.0 - Age-related osteoporosis without current pathological fracture Plan: Continue vitamin-D supplement patient declined to treat Orders: Orders Comprehensive [place]. Panel Fast 3 Months E78.5 - Hyperlipidemia, unspecified, I10 - Essential (primary) hypertension Lipid Panel 3 Months E78.5 - Hyperlipidemia, unspecified, I10 - Essential (primary) hypertension Coding Level of Care Code Est Pt Level 4 (00570) Diagnoses Primary hypertension I10 Hypertension type: primary hypertension Hyperlipidemia E78.5 Osteoporosis M81.0
== END 2024-06-05 11:08 | disposition home or self-care (01) ==
PROVIDERS: PCP Internal Medicine; Visit Provider Internal Medicine
DX: I10 Essential (primary) hypertension (principal); E78.5 Hyperlipidemia, unspecified; M81.0 Age-related osteoporosis without current pathological fracture

== ENCOUNTER → 2024-06-05 09:59 | Outpatient (BNVA) | payer MEDICARE, SELFPAY | PROVIDERS: PCP Internal Medicine; Visit Provider Internal Medicine | DX: I10 Essential (primary) hypertension (principal); E78.5 Hyperlipidemia, unspecified; M81.0 Age-related osteoporosis without current pathological fracture | CPT/HCPCS: 99212 ==

== ENCOUNTER 2025-04-03 12:09 | Outpatient (AMB) | payer MEDICARE, SELFPAY ==
[2025-04-03 12:11] VITALS: BP 132/82; PULSE 88; RESP 20; TEMP 36.4; O2SAT 97; BMI 30.9
--- NOTE | 2025-04-03 12:11 | A.OFFPC_ITS ---
Vital Signs 04/03/25 12:11 Height 5 ft 2 in Weight 169 lb BMI 30.9 BP 132/82 Blood Pressure Location Lt brachial Position Sitting Respiration 20 Pulse 88 Pulse Source Pulse Oximeter Temp 97.6 F Temp Source Oral Pulse Oximetry (%) 97 Oxygen Delivery Method Room Air Intake Visit Reasons: Annual PE Intake Note: Pt is here today for PE. Allergies Codeine Adverse Reaction (Unknown, Uncoded 04/03/25 12:12) Itchy Medication List - Last Reconciled 04/03/25 by Kelly Lyons MD amlodipine 2.5 mg PO DAILY anastrozole 1 mg PO DAILY atorvastatin 80 mg PO DAILY metoprolol succinate ER 100 mg PO DAILY Tobacco use date assessed: 04/03/25 Fall risk assessment: No Falls in past year Last assessed Fall Risk: 04/03/25 Dental Screening Dental Screen Date: 04/03/25 Did you have a dental visit in the last 12 months?: Yes Did you have a dental problem in the last 6 months where you did not have access to dental care?: No Was dental information given to patient?: Patient has dentist HPI Annual PE HPI Details Patient presents for physical PFSH Medical History (Updated 04/03/25 @ 14:52 by Kelly Lyons MD) Normal pressure hydrocephalus Hyperlipidemia Acute hearing loss HTN (hypertension) Breast CA STEMI (ST elevation myocardial infarction) History of mammogram Osteoporosis Surgical History (Updated 04/03/25 @ 12:52 by Kelly Lyons MD) History of lumpectomy of right breast (~2020) History of surgery on wrist H/O colonoscopy No pertinent past surgical history Family History Father Cancer Mother No problems noted. Social History Housing: House Alcohol intake: current Alcohol intake frequency: holidays/special occasions only Patient Tobacco Use Status: Former Tobacco user e-Cigarette/Vaping Use: Never Used service: No Current occupational status: retired Current occupational exposures/hazards: No Cognitive needs: No Hearing needs: No Vision needs: Yes Questionnaire PHQ-9 Over the last 2 weeks, how often have you been bothered by any of the following problems? 1. Little interest or pleasure in doing things: not at all 2. Feeling down, depressed, or hopeless: not at all 3. Trouble falling or staying asleep, or sleeping too much: not at all 4. Feeling tired or having little energy: not at all 5. Poor appetite or overeating: not at all 6. Feeling bad about yourself - or that you are a failure or have let yourself or your family down: not at all 7. Trouble concentrating on things, such as reading the newspaper or watching television: not at all 8. Moving or speaking so slowly that other people could have noticed. Or the opposite - being so fidgety or restless that you have been moving around a lot more than usual: not at all 9. Thoughts that you would be better off or of hurting yourself in some way: not at all Total score: 0 Depression Screening Interpretation: Negative Depression Screening Done: Yes 19165 - PHQ-9 Billing: Yes Source: Developed by Drs. Viraj Vela, Melissa Alexander, Damian Kenny and colleagues, with an educational emir from [employer]. Thrive Questionnaire Date Thrive assessed: 04/03/25 I am a: Patient What is your living situation today?: I have a steady place to live Within the past 12 months, did the food you bought not last and you didn't have the money to get more?: I choose not to answer this question Within the past 12 months, did you worry whether your food would run out before you got money to buy more?: Never true Do you have trouble paying for medicines?: No Do you have trouble getting transportation to medical appointments?: No Do you have trouble paying your heating and electricity bill?: No Do you have trouble taking care of your child, family member or friend?: No Do you have trouble with day-to-day activities such as bathing, preparing meals, shopping, managing finances, etc.?: No Are you currently unemployed and looking for a job?: No Are you interested in more education?: No Please select the resources that you would like help with: None Currently or been in a relationship where the following occur: No concerns reported THRIVE Score: 0 AUDIT C Alcohol Use Questionnaire (AUDIT-C) 1. How often do you have a drink containing alcohol?: Never 3. How often do you have six or more drinks on one occasion?: Never Total Score: 0 GUERDA-7 AMB Questionnaire GUERDA-7 Date GUERDA - 7 assessed: 04/03/25 Feeling nervous, anxious, or on edge: 1 = Several days Not being able to stop or control worryin = Not at all Worrying too much about different things: 1 = Several days Trouble relaxin = Not at all Being so restless that it is hard to sit still: 0 = Not at all Becoming easily annoyed or irritable: 0 = Not at all Feeling afraid as if something awful might happen: 0 = Not at all Total GUERDA-7 score (0-4 normal; 5-9 mild; 10-14 moderate; 15-21 severe): 2 Source: Developed by Drs. Viraj Vela, Melissa Alexander, Damian Kenny and colleagues, with an educational emir from [employer]. GUERDA-7 Assessment Billing GUERDA-7 Assessment Tool: GUERDA-7 Assessment 66019 Review of Systems Const All systems reviewed & are unremarkable except as noted in HPI and below Reports no additional complaints Eyes Reports no additional complaints ENT Reports no additional complaints Card Reports no additional complaints Resp Reports no additional complaints GI Reports no additional complaints Reports no additional complaints Physical exam (Primary Care) Vital Signs: Last Vital Signs Temp 97.6 F 04/03/25 12:11 Pulse 88 04/03/25 12:11 Resp 20 04/03/25 12:11 BP 132/82 04/03/25 12:11 Pulse Ox 97 04/03/25 12:11 Oxygen Delivery Method Room Air 04/03/25 12:11 BMI result Body Mass Index 30.9 Tobacco/Smoking Status: Tobacco use Status Tobacco use date assessed 04/03/25 04/03/25 12:18 Patient Tobacco Use Status Former Tobacco user 04/03/25 12:18 e-Cigarette/Vaping Use Never Used 04/03/25 12:18 PHQ-9: PHQ-9 Score PHQ-9: Total score 0 04/03/25 13:14 Depression Screening Interpretation: Negative Thrive Assessment: Date of Thrive Assessment Date Thrive assessed 04/03/25 04/03/25 12:18 Currently or been in a relationship where the following occur: No concerns reported Const General: no acute distress HENMT Head: Yes normal to inspection Face and sinus: Yes normal facial exam Eyes General: appearance normal, both eyes and all related structures Neck Neck: Yes no lymphadenopathy and Yes supple Resp Effort & Inspection: normal respiratory effort Auscultation: clear to auscultation bilaterally Cardio Rhythm: regular rhythm Heart sounds: S1 normal heart sound present and S2 normal heart sound present GI Inspection: Yes normal to inspection Palpation (GI): Soft to palpation Percussion: Yes normal to percussion Auscultation: normal bowel sounds Immunizations pneumoc 20-megan conj-dip cr(PF) 0.5 mL IM syringe Performing Provider: Kelly Lyons MD Performing Location: [facility] [place] [facility] Administered by: TIFFANIE Hilton on 04/03/25 13:14 Dose Route Admin Location Dispensed Lot Number Expiration Date [facility] Open [employer] 0.5 mL IM Right Deltoid 0.5 mL [id number] 03/17/26 8089-8015-47 [place] [employer] Total Dispensed Waste 0.5 mL 0 % VIS Given Date VIS Provided VIS Publication Date 04/03/25 Single Vaccine 25 Eligibility Eligibility Date Funding Source Not [facility] Eligible 04/03/25 Private Coding Level of Care Code Est Pt Prev Care >65y(47021) Diagnoses H/O colonoscopy Z98.890 Primary hypertension I10 Hypertension type: primary hypertension Osteoporosis M81.0 Hyperlipidemia E78.5 Dysplastic nevi D23.9 STEMI (ST elevation myocardial infarction) I21.3 Malignant neoplasm of female breast, unspecified estrogen receptor status, unspecified laterality, unspecified site of breast C50.919 Breast location: unspecified site of breast Estrogen receptor status: unspecified Patient sex: female Laterality: unspecified laterality Normal pressure hydrocephalus G91.2 Additional Codes GUERDA-7 Assessment Billing - GUERDA-7 Assessment Tool: GUERDA-7 Assessment 68517 ([id number]) PHQ-9 - 70104 - PHQ-9 Billing: Yes ([id number]) Assessment & Plan Assessment & Plan (1) H/O colonoscopy: Comment: 08/2011 polyp, in 2017 negative - recheck 5 years Code(s): Z98.890 - Other specified postprocedural states Category: Surgical Plan: Referred to GI for repeat colonoscopy, patient is overdue (2) HTN (hypertension): Code(s): I10 - Essential (primary) hypertension Category: Medical Qualifiers: Hypertension type: primary hypertension Qualified Code(s): I10 - Essential (primary) hypertension Plan: Continue current medications (3) Osteoporosis: Comment: DEXA 2020, DEXA 04/2024 T score -3.1, pt refused treatment Code(s): M81.0 - Age-related osteoporosis without current pathological fracture Category: Medical Plan: Continue vitamin-D supplement weightbearing exercises (4) Hyperlipidemia: Code(s): E78.5 - Hyperlipidemia, unspecified Category: Medical Plan: Continue statin (5) Dysplastic nevi: Comment: An upper chest and back Code(s): D23.9 - Other benign neoplasm of skin, unspecified Category: Medical Plan: Referred to dermatology (6) STEMI (ST elevation myocardial infarction): Comment: s/p RODOLFO in [facility]AD 05/2017, follow-up with [facility] Cardiology Code(s): I21.3 - ST elevation (STEMI) myocardial infarction of unspecified site Category: Medical Plan: Continue aspirin beta ambar and high-dose statin (7) Breast CA: Comment: R breast dxd 10/2020, s/p lumpectomy, RTx, on Tamoxifen, f/u Dr. 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 Panel Fast Today E78.5 - Hyperlipidemia, unspecified, I10 - Essential (primary) hypertension, M81.0 - Age-related osteoporosis without current pathological fracture Complete Blood Count Auto Diff Today E78.5 - Hyperlipidemia, unspecified, I10 - Essential (primary) hypertension, M81.0 - Age-related osteoporosis without current pathological fracture TSH reflex Free T4 Today E78.5 - Hyperlipidemia, unspecified, I10 - Essential (primary) hypertension, M81.0 - Age-related osteoporosis without current pathological fracture Vitamin D 25-OH Total Today E55.9 - Vitamin D deficiency, unspecified Comprehensive [place]. Panel Fast 1 Year E78.5 - Hyperlipidemia, unspecified, I10 - Essential (primary) hypertension Lipid Panel Today E78.5 - Hyperlipidemia, unspecified, I10 - Essential (primary) hypertension, M81.0 - Age-related osteoporosis without current pathological fracture UA w Microscopic Today E78.5 - Hyperlipidemia, unspecified, I10 - Essential (primary) hypertension, M81.0 - Age-related osteoporosis without current pathological fracture Pneumococcal 20 Immunization Today Z23 - Encounter for immunization Complete Blood Count Auto Diff 1 Year E78.5 - Hyperlipidemia, unspecified, I10 - Essential (primary) hypertension Lipid Panel 1 Year E78.5 - Hyperlipidemia, unspecified, I10 - Essential (primary) hypertension TSH reflex Free T4 1 Year E78.5 - Hyperlipidemia, unspecified, I10 - Essential (primary) hypertension Vitamin D 25-OH Total 1 Year E78.5 - Hyperlipidemia, unspecified, I10 - Essential (primary) hypertension Referrals Gastroenterology Referral E78.5 - Hyperlipidemia, unspecified, I10 - Essential (primary) hypertension, M81.0 - Age-related osteoporosis without current pathological fracture, Z98.890 - Other specified postprocedural states Dermatology Referral D23.9 - Other benign neoplasm of skin, unspecified Medications: New atorvastatin 80 mg PO DAILY 90 tabs 3RF Refilled amlodipine 2.5 mg PO DAILY 90 tabs 3RF metoprolol succinate ER 100 mg PO DAILY 90 tabs 3RF
--- OUTSIDE RECORDS SUMMARY | 2025-04-03 12:46 | XMS_ITS | Data Portability ---
Author Organization [place] - [facility], Allergy Address [address] [address] Care Team Providers Care Stroke Belt Sander Operator Name Role Phone TITUS SÁNCHEZ Primary Care Provider Assessment Encounter Date Assessment Date Assessment LastModified by Organization Details LastModified Time 06/21/2024 06/21/2024 68-year-old female presents for reevaluation. Otologic exam is unremarkable. Imaging and documentation were reviewed in [facility]. 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 Report suggest that this mass was seen on previous imaging though it does not refer to how long ago this imaging was completed. Updated audiometric testing was obtained today showing stable hearing loss bilaterally, left greater than the right. Given finding of acoustic neuroma on the left side I have recommended referral to Dr. Ortiz. I have recommended an MRI of the IAC be completed 6 months after her MRI in February to monitor the size of the mass. Will follow-up with Dr. Ortiz in 6 months for review of this MRI and further planning if necessary. Will return to our office sooner with any acute changes in hearing, vertigo, or worsening of the hearing in the left ear. Will continue to follow with neurosurgery in regards to intracranial hypertension. All questions were answered. [email or web address] Not available 06/21/2024 11:06:40 Plan of Treatment Reminders Order Date Submit Date Provider Last Modified By Organization Details Last Modified Time Details Appointments [facility] 2024 01:00P M JESSICA CISSE MD Not available Not available Not available Lab None recorded . Referral None recorded . Procedures None recorded . Surgeries None recorded . Imaging MRI, brain + internal auditory canal, w/wo contrast - please schedule for august for serial monitori ng of retro cochlear lesion. 2023 024 SHEELA [facility] ([facility] [address], [place], [address], 07/09/2024 14:33:13 MRI, brain + internal auditory canal, w/wo contrast - MRI, BRAIN + INTERNAL AUDITORY CANAL, W/WO CONTRAST 2023 024 [email or web address] [facility] ([facility]), [address], [place], [address], 05/31/2024 16:26:11 Medication Orders None recorded . Patient TargetsNo targets recorded. Patient InstructionsNo instructions recorded. Reason for Referral None Reported. Results Created Date Observation Date Name Description Value Unit Range Abnormal Flag Note LastModifiedBy Organization Detail LastModifiedTime 03/13/20 24 03/06/2024 audio gram No observ ation record ed. BARCODE Not Available 2023 15:07:29 06/21/20 24 03/06/2024 audio gram No observ ation record ed. Not Available 12/2023 11:05:02 06/21/20 audio gram No observ ation record ed. [email or web address] Not Available 2023 15:32:30 06/24/20 24 03/17/2024 MRI, brain , w/o contr ast No observ ation record ed. [email or web address] Not Available 03/2024 10:32:03 07/09/20 24 07/08/2024 MRI, brain + brain stem, w/wo contr ast [facility] Access ion Number : [id number] Reji ta Name: Rupa Waldrona deidre Record Number : [id number] Date of : 1954 Date of Exam: 2023 Referr ing Physic maximilian: Yohan Fields [facility] [address], [address] [facility], [place] [address] Exam: MR Brain (C-/C+ ) CPT 61986 Room Descri ption: [facility] 3T MR Brain (C-/C+ ) CPT 15610 INDICA TION / CLINIC AL QUESTI ON: - Benign neopla sm of crania l nerves , , please schedu le for decemb er for serial monito ring of retro cochle ar lesion . TECHNI QUE: Multip lanar, multis equenc e MRI of the brain was perfor med with and withou t intrav enous contra st. 15 mL Dotare m intrav enous contra st was admini stered . COMPAR RASTA: MRI brain 024. FINDIN GS: IAC: Hetero geneou sly enhanc ing mass is again seen expand ing the left internal consultant al audito ry canal extend ing into the left cerebe llopon amilcar angle. This mass measur es 2.2 x 1.8 x 2.0 cm, not signif icantl y change d from the prior examin ation. This indent s the latera l aspect of the left middle cerebe llar pedunc le and kenya, with no signif icant associ ated edema, simila r to prior. The mass extend s within 2 mm of the cochle ar apertu re, but there is no extens ion of abnorm al enhanc ement into the inner ear struct ures, and fluid signal within the inner ear struct ures is preser alexa. There is no mass or abnorm al enhanc ement in the right internal consultant al audito ry canal or cerebe llopon amilcar angle. Course and calibe r of the right 7th and 8th crania l nerves is normal . Fluid signal is preser alexa in the right inner ear struct ures. BRAIN and EXTRA- AXIAL SPACES : Suscep tibili ty artifa ct relate d to the ventri cular shunt is presen t overly ing the right pariet al lobe. Ventri cular shunt cathet er extend s throug h the right fronta l lobe into the anteri or body of the right latera l ventri joanne, termin ating in the region of the fornix . Reticu lar promin ence has slight ly decrea sed from the prior MRI. Perive ntricu lar T2 prolon gation has also decrea sed from prior. No acute abnorm ality of the visual ized portio ns of the brain and extra- axial spaces . EXTRAC RANIAL SOFT TISSUE S: Visual ized portio ns of the extrac ranial soft tissue s are unrema rkable . BONES: Visual ized marrow signal is preser alexa. IMPRES MADDIE: 1. No signif icant change in size or config uratio n of the left-s ided vestib ular schwan noma. 2. Ventri cular dilata tion is slight ly decrea sed from the prior MRI of 024, status post right fronta l approa ch ventri cular cathet er placem ent. Electr onical ly Signed By: Kristine Melo MD [email or web address] [facility] ([facility]) [address] [place], [address], 07/09/2024 14:44:04 07/09/20 24 07/08/2024 MRI, brain + inter nal audit ory canal , w/wo contr ast No observ ation record ed. [email or web address] [facility] ([facility]) [address] [facility], [place], [address], 07/09/2024 14:43:57 Result Notes Documentation Provider Name and Address Organization Details Recorded Time Mri, Brain + Brain Stem, W/wo Contrast : [facility] Accession Number: [id number] Patient Name: Tatyana Waldron Date of : 1955 Date of Exam: 07-08-2024 Referring Physician: Yohan Prather [facility] [address] [facility], [address] [place], [place] [address] Exam: MR Brain (C-/C+) CPT 73152 Room Description: [facility] 3T MR Brain (C-/C+) CPT 03071 INDICATION / CLINICAL QUESTION: - Benign neoplasm of cranial nerves, , please schedule for august for serial monitoring of retro cochlear lesion. TECHNIQUE: Multiplanar, multisequence MRI of the brain was performed with and without intravenous contrast. 15 mL Dotarem intravenous contrast was administered. COMPARISON: MRI brain 03/17/2024. FINDINGS: IAC: Heterogeneously enhancing mass is again seen expanding the left internal auditory canal extending into the left cerebellopontine angle. This mass measures 2.2 x 1.8 x 2.0 cm, not significantly changed from the prior examination. This indents the lateral aspect of the left middle cerebellar peduncle and kenya, with no significant associated edema, similar to prior. The mass extends within 2 mm of the cochlear aperture, but there is no extension of abnormal enhancement into the inner ear structures, and fluid signal within the inner ear structures is preserved. There is no mass or abnormal enhancement in the right internal auditory canal or cerebellopontine angle. Course and caliber of the right 7th and 8th cranial nerves is normal. Fluid signal is preserved in the right inner ear structures. BRAIN and EXTRA-AXIAL SPACES: Susceptibility artifact related to the ventricular shunt is present overlying the right parietal lobe. Ventricular shunt catheter extends through the right frontal lobe into the anterior body of the right lateral ventricle, terminating in the region of the fornix. Reticular prominence has slightly decreased from the prior MRI. Periventricular T2 prolongation has also decreased from prior. No acute abnormality of the visualized portions of the brain and extra-axial spaces. EXTRACRANIAL SOFT TISSUES: Visualized portions of the extracranial soft tissues are unremarkable. BONES: Visualized marrow signal is preserved. IMPRESSION: 1. No significant change in size or configuration of the left-sided vestibular schwannoma. 2. Ventricular dilatation is slightly decreased from the prior MRI of 03/17/2024, status post right frontal approach ventricular catheter placement. Electronically Signed By: Ashley PRATHER PA-C [address] [place] [address], [phone], [facility] 07/09/2024 14:44:04 Problems Name Problem SNOMED Code Status Onset Date Resolution Date Notes Provider Name and Address Organization Details Recorded Time Sudden idiopathic hearing loss 078373805 Active 2023 ALAN RAE MD [address] [place] [address], [phone], [facility] - [facility] 4 15:57:36 Sensorineural hearing loss of bilateral ears 002678594 Active 2023 Rosie odonnell [place] - [facility] 4 10:47:49 Benign neoplasm of cranial nerve 39868934 Active 2023 YOHAN PRATHER PA-C [address] [facility] [address], [place], [address], [facility] - [facility] 11:06:55 Problem Notes None recorded. Procedures Surgical History Date Name Laterality Status Provider Name and Address Organization Details Recorded Time Air & Speech Audio with Tymps - 97843, 61886 & 47352 completed Rosie Faith [place] - [facility] 06/21/2024 10:47:42 operation on breast completed ALAN RAE MD [address] [place] [address],[address], [address], [facility] - [facility] 03/10/2024 16:45:32 Imaging Results None recorded. Procedure Notes None recorded. Medical Equipment None Reported. Allergies No known drug allergies Medications Name Sig Start Date Stop Date Status Note LastModified by Organization Details LastModified Time tamoxifen 10 mg tablet Take 1 tablet twice a day by oral route. active Not Available Not Available No t Available Vitals Date Recorded Body height Body mass index (BMI) Body weight Provider Name and Address Organization Details Last Updated DateTime 03/08/2024 160.02 cm 28.3 kg/m2 19521.78 g Maria Eugenia Jalloh [place] - [facility] 03/08/2024 15:38:43 Social History None recorded. Functional Status None recorded. Mental Status None recorded. Family History Nothing Reported. Medical History Condition Response Heart Attack (SC) Y Hypertension Y Gynecological HistoryNo gynecological history recorded. Obstetrics History GPAL:G 0 P 0 0 0 0 Past Encounters Encounter ID Performer Location Encounter Start Date Encounter Closed Date Diagnosis/Indication Diagnosis SNOMED-CT Code Diagnosis ICD10 Code Diagnosis Note [id number] ALAN RAE MD [facility] [address] [place] [address] 03/08/2024 14:54:12 03/08/2024 16:07:49 Sudden idiopathic hearing loss 310983070 H91.22 68-year-ol d female with acute illness several weeks ago with dizziness, ear pain and hearing loss. We tried to pin down when she first noticed that hearing loss as close as possible and she believes it has been at least 5 weeks. We did discuss potential for steroid treatment up to about 6 weeks and we reviewed the risks and benefits of proceeding with the steroid treatment, and given the time course from symptom onset it would be unlikely to help much.We will proceed with MRI to evaluate for any retrocochl ear mass. YOHAN PRATHER PA-C [facility] [address] [phone] 06/21/2024 09:30:38 06/21/2024 11:00:24 Sensorineural hearing loss of bilateral ears [id number] H90.3 Audiologic al evaluation results: Right ear: Normal sloping to a moderate sensorineu ral hearing loss with excellent word recognitio n. Left ear: Normal sloping to severe sensorineu ral hearing loss with no measurable word recognitio n. Tympanomet ry: Right Ear:Type A Left Ear:Type A Benign huan plasm of cranial nerve 10959501 D33.3 Health Concerns Section Related Observation LastModified by Organization Detai ls LastModified Time None Recorded Concern Status LastModified by Organization Details LastModified Time None Recorded Advance Directives Directive None Recorded Payers Insurance Date Sequence Insurance Name Policy Number Policy Helton Covered Member ID Helton Member ID Guarantor Name 04/02/2025 1 [facility] (MEDICARE REPLACEMENT/A DVANTAGE - PPO) [id number] Tatyana Waldron [id number] Tatyana Waldron Notes Date Note Type Note Provider Name and Address Organization Details Recorded Time 03/08/2024 text/html Patient started having left neck, off balance and ear pain a couple months ago, noted about 3 weeks ago at [facility] that hearing was also down. Pain has since improved. Had audiogram at [facility] which showed an asymmetric loss on the left. ALAN RAE MD [address] [place] [address], [phone], [facility] - [facility] 03/10/2024 16:48:39 06/21/2024 text/html 68-year-old fembrittani foster presents for evaluation of asymmetrical hearing loss. She was first evaluated in our office by Dr. Rae on March 08. Found to have asymmetric hearing loss, left greater than right. Patient thought that this happened about 5 weeks prior to presentation. Oral steroids were recommended but she did not complete this. Several weeks later she began to have gait disturbances and presented to the ER. She was found to have intracranial hypertension and had [employer] shunt placement. During her admission she had several imaging studies and states that a mass was found behind her left ear. ALAN RAE MD [address] [place] [address], [place], [address], [facility] - [facility] 06/23/2024 07:43:11 OBGyn Episode No OBEpisode recorded.
--- OUTSIDE RECORDS SUMMARY | 2025-04-03 12:47 | XMS_ITS | Clinical Summary ---
Author Organization [facility] Address [address] [place] [address] Care Team Providers Care Cushion Cover Inspector Name Role Phone Kelly Lyons MD Primary Care Provider [phone] Allergies No known active allergies Medications Medication Sig Dispensed Refills Start Date End Date Status atorvastatin (LIPITOR) tablet 40 mg Take 40 mg by mouth daily. 0 Active metoprolol succinate (TOPROL-XL) 24 hr tablet 50 mg Take 50 mg by mouth daily. 0 Active aspirin EC 81 MG tablet Take 81 mg by mouth daily. 0 Active Multiple Vitamin (Multivitamin Adult) TABS Take 1 tablet by mouth daily. 0 Active vitamin D3 (VITAMIN D3) 25 MCG (1000 UT) tablet Take 1,000 Units by mouth daily. 0 Active ascorbic acid (VITAMIN C) 500 MG tablet Take 500 mg by mouth daily. 0 Active tamoxifen (NOLVADEX) 20 MG tablet TAKE 1 TABLET BY MOUTH EVERY DAY 90 tablet 2 01/01/2024 Active Active Problems No known active problems Social History Tobacco Use Types Packs/Day Years Used Date Smoking Tobacco: Former Smokeless Tobacco: Never Alcohol Use Standard Drinks/Week Comments Not Currently 0 (1 standard drink = 0.6 oz pur e alcohol) Sex and Gender Information Value Date Recorded Sex Assigned at Not on file Gender Identity Not on file Sexual Orientation Not on file Job Start Date Occupation Industry Not on file Not on file Not on file Last Filed Vital Signs Vital Sign Reading Time Taken Comments Blood Pressure 147/88 03/01/2024 10:03 AM EDT Pulse 106 03/01/2024 10:03 AM EDT Temperature 36.6 C (97.9 F) 03/01/2024 10:03 AM EDT Respiratory Rate - - Oxygen Saturation 96% 03/01/2024 10: 03 AM EDT Inhaled Oxygen Concentration - - Weight 72.9 kg (160 lb 12.8 oz) 024 10:03 AM EDT Height 158.8 cm (5' 2.5 ) 03/01/2024 10 :03 AM EDT Body Mass Index 28.94 03/01/2024 10:03 AM EDT Plan of Treatment Health Maintenance Due Date Last Done Comments Hepatitis C Screening 1955 COVID-19 Vaccine (#1) 01/23/1956 Depression Screening 1967 Preventative Health Evaluation 1973 DTap / Tdap / Td (1 - Tdap) 1974 Colon Cancer Screening (Colonoscopy) 2000 Breast Cancer Screening (Mammogram) 2005 Shingrix-Zoster Vaccine (1 of 2) 2005 Fall Risk Assessment 2020 Osteoporosis Screening (DEXA Scan) 2020 Pneumococcal Vaccine (2 of 2 - PCV) 2020 06/06/2017 Influenza Vaccine (#1) 2025 06/06/2017 RSV Adult > 60+ Yrs or Pregn ant (1 - 1-dose 75+ series) 2030 Hepatitis B Vaccines Aged Out No long er eligible based on patient's age to complete this topic RSV Ped < 20 months Aged Out No longe r eligible based on patient's age to complete this topic Care Teams Cushion Cover Inspector Relationship Specialty Start Date End Date Kelly Lyons MD [address] [place] [address] PCP - General Profiling Machine Set Up Operator 12/15/20
--- OUTSIDE RECORDS SUMMARY | 2025-04-03 12:47 | XMS_ITS | Clinical Summary ---
Author Organization Patient Business Ser vice [facility] Address [address] [place] [address] Care Team Providers Care Hand Sprayer Name Role Phone Kelly Lyons MD Primary Care Provider [phone] Allergies No known active allergies Medications ascorbic acid (VITAMIN C) 500 mg tablet Take 1 tablet (500 mg total) by mouth. Active aspirin 81 mg EC tablet Take 1 tablet (81 mg total) by mouth. 06/16/2018 Active cholecalciferol (VITAMIN D-3) 25 mcg (1,000 unit) tablet Take 1 tablet (1,000 Units total) by mouth. Active tamoxifen (NOLVADEX) 20 mg chemo tablet Take 1 tablet (20 mg total) by mouth 1 (one) time each day 03/07/2023 Active amLODIPine (NORVASC) 2.5 mg tablet 07/30/2024 Active anastrozole (ARIMIDEX) 1 mg Take 1 tablet (1 mg total) by mouth 1 (one) time each day Swallow whole with a drink of water. 30 tablet 11 09/03/2024 09/03/20 25 Active atorvastatin (LIPITOR) 80 mg tabletIndication s:Atheroscleroti c heart disease of campo coronary artery without angina pectoris,Pure hypercholesterol emia, unspecified TAKE 1 TABLET BY MOUTH EVERY DAY 90 tablet 1 10/11/2024 Active Active Problems Problem Noted Date Diagnosed Date Hypercholesteremia 11/29/2023 Overview (11/29/2023): Last Assessment & Plan: Patient just had a fasting lipid profile drawn on Monday. Total cholesterol 149, triglycerides 85, HDL 62 and LDL of 70. This is at goal in the setting of coronary artery disease. She will continue on her current dose of Lipitor 80 mg and be mindful of her diet. Hypertension 11/29/2023 Overview (11/29/2023): Last Assessment & Plan: Blood pressure mildly elevated during today's exam with a reading of 130/80. Patient educated on the importance of diet and lifestyle modification to help further decrease blood pressure. Patient encouraged to follow a low-salt low-fat diet, make purposeful strides towards weight loss and engage in routine aerobic exercise as tolerated. She will continue on her current dose of metoprolol. Coronary artery disease 08/31/2020 Overview (11/29/2023): Last Assessment & Plan: Patient is status post drug-eluting stent to 1 in 2017. At that time her symptoms were diaphoresis and feeling as though she had a cold. Patient denies chest pain or pressure, however does note increased fatigue. She also has complaints of left- sided jaw pain and has recently had a cold. In light of these symptoms and her history of coronary disease I am going to update a stress test to further evaluate for ongoing ischemia. Patient instructed to call 911 and go to the emergency room should she begin to experience chest pain or pressure lasting greater than 10 minutes that does not resolve with rest. Immunizations Name Administration Dates Next Due Influenza, Unspecified 06/06/2017 Pneumococcal Conjugate 06/06/2017 Surgical History Surgery Date Site/Laterality Comments CERVICAL BIOPSY W/ LOOP ELECTRODE EXCISION 2004 PROCEDURE: HISTORICAL CONE BIOPSY BREAST BIOPSY 11/30/2020 Bilateral PROCEDURE: BX BREAST; PERC NEEDLE CORE W/IMAG GUID; COMMENT: left benign, right IDC BREAST SURGERY 12/25/2020 Left PROCEDURE: OK UNLISTED PROCEDURE BREAST; COMMENT: benign BREAST LUMPECTOMY 12/25/2020 Right PROCEDURE: HISTORICAL BREAST LUMPECTOMY; COMMENT: IDC Medical History Medical History Date Comments Hypertension DX:Hypertension Hypercholesteremia DX:Hyperchole steremia History of myocardial infarction 2017 DX:History of myocardial infarction Personal history of malignan t neoplasm of breast 2020 DX:Personal history of malig nant neoplasm of breast; COMMENT: IDC right breast Family History Medical History Relation Name Comments Breast cancer Neg Hx Colon cancer Neg Hx Ovarian cancer Neg Hx Pancreatic cancer Neg Hx Prostate cancer Neg Hx Uterine cancer Neg Hx Social History Tobacco Use Types Packs/Day Years Used Date Smoking Tobacco: Former Cigarettes Q uit: 12/03/1991 Smokeless Tobacco: Former Alcohol Use Standard Drinks/Week Comments Not Currently 0 (1 standard drink = 0.6 oz pur e alcohol) Comments No Sex and Gender Information Value Date Recorded Sex Assigned at Female 09/30/2024 1:37 PM EST Legal Sex Female 9:34 AM EDT Gender Identity Female 09/30/2024 1:37 PM EST Sexual Orientation Straight 09/30/2024 1: 37 PM EST Obstetrics History Para Term AB IAB SAB Ectopic Multiple Livin g Live Births 3 Last Filed Vital Signs Vital Sign Reading Time Taken Comments Blood Pressure 130/81 09/03/2024 1:24 PM EST Pulse 101 09/03/2024 1:24 PM EST Temperature 36.1 C (97 F) 09/03/2024 1:24 PM EST Respiratory Rate - - Oxygen Saturation 100% 09/03/2024 1:24 PM EST Inhaled Oxygen Concentration - - Weight 72.6 kg (160 lb) 10/01/2024 1:04 PM EST Height 157.5 cm (5' 2 ) 10/01/2024 1:04 PM EST Body Mass Index 29.26 10/01/2024 1:04 PM EST Plan of Treatment Upcoming Encounters Date Type Department Care Team (Late st Contact Info) Description 10/02/2025 3:00 PM EST Appointment Radiology Department - [address] [id number] Health Maintenance Due Date Last Done Comments Zoster Vaccines (1 of 2) 1974 Cervical Cancer Screening: HPV 1976 Pneumococcal Vaccine: 50+ Years (2 of 2 - PCV) 06/06/2018 06/06/2017 Cholesterol Screening (Lipid Panel) 04/01/2020 Depression Screening 04/01/2020 Hepatitis C Screening 04/01/2020 Medicare Annual Wellness Visit 04/01/2020 Social Influencers of Health Screening 04/01/2020 Falls Risk Assessment 2020 Hypertension/CHF/CAD Annual BMP Blood Test 08/28/2022 COVID-19 Vaccine ( - 2023- season) 2024 09/24/2021, 01/14/2021, 12/17/2020 Influenza Vaccine (#1) 2025 06/06/2017 DTaP,Tdap,and Td Vaccines (3 - Td or Tdap) 12/30/2027 12/29/2017, 06/06/2017 Colorectal Cancer Screening: Colonoscopy 10/09/2029 10/09/2024 RSV Immunization Adult Patients (1 - 1-dose 75+ series) 2030 Osteoporosis Screening (Bone Density Screening) 07/06/2031 07/06/2021 Breast Cancer Screening Discontinued 10/01/19, 02/14/2024, 02/14/2024, Additional history exists HIB Vaccines Aged Out No longer eligi ble based on patient's age to complete this topic HPV Vaccines Aged Out No longer eligi ble based on patient's age to complete this topic Hepatitis A Vaccines Aged Out No long er eligible based on patient's age to complete this topic Hepatitis B Vaccines Aged Out No long er eligible based on patient's age to complete this topic IPV Vaccines Aged Out No longer eligi ble based on patient's age to complete this topic MMR Vaccines Aged Out No longer eligi ble based on patient's age to complete this topic Meningococcal ACWY Vaccine Aged Out N o longer eligible based on patient's age to complete this topic Meningococcal B Vaccine Aged Out No l onger eligible based on patient's age to complete this topic RSV Immunization Patients Under 20 months Aged Out No longer eligible based on patient's age to complete this topic Varicella Vaccines Aged Out No longer eligible based on patient's age to complete this topic Procedures Procedure Name Priority Date/Time Associated Diagnosis Comments COLONOSCOPY Routine 10/09/2024 2:23 PM EST MG MAMMO DIGITAL DIAGNOSTIC W TERRENCE BILAT Routine 10/01/2024 3:24 PM EST Invasive ductal carcinoma of breast, female, right (CMS/HCC V24, CMS/HCC V28) Malignant neoplasm of upper-outer quadrant of left female breast, unspecified estrogen receptor status (CMS/[facility] V24, [facility] V28) [facility] DEXA AXIAL SKELETON Routine 07/06/2021 3:15 PM EDT Encounter for screening for osteoporosis from Last 3 Months or Most Recently Relevant to Health Maintenance Results * COLONOSCOPY (10/09/2024 2:23 PM EST) Anatomical Region Laterality Modality Endoscopy us Historical Provider GI~PROCEDURE ORDERABLES F inal Result * MG Mammo Digital Diagnostic w Terrence bilat (10/01/2024 3:24 PM EST) Anatomical Region Laterality Modality Breast Bilateral Mammography 10/01/2024 2:28 PM EST Impressions 10/01/2024 2:35 PM EST Stable right breast findings consistent with previous lumpectomy. No evidence of new or recurrent right breast cancer. Postoperative changes in the left breast. No persistent suspicious left breast finding. The patient should be managed on the basis of the clinical breast exam A negative mammogram in the presence of a clinically suspicious palpable abnormality does not preclude the possibility of malignancy or alter the indications for biopsy. ASSESSMENT: BI-RADS 2: BENIGN RECOMMENDATION(S): 1: The patient should be managed on the basis of the clinical breast exam. Continue screening. If there is any new or increasing palpable finding follow-up or repeat study may be helpful -------- FINAL REPORT -------- Dictated By: Saul King Dictated Date: 10/01/2024 14:28 ET Assigned Physician: Saul King Reviewed and Electronically Signed By: Saul King Signed Date: 10/01/2024 14:35 ET Workstation ID: [id number] Transcribed By: Self Edit Transcribed Date: 10/01/2024 14:28 ET Narrative 10/01/2024 2:35 PM EST EXAM: DIAGNOSTIC MAMMOGRAPHY, BILATERAL ULTRASOUND: DIAGNOSTIC ULTRASOUND, UNILATERAL LEFT HISTORY: Abnormal clinical breast exam. Palpable abnormality 1 o'clock left breast by provider The patient has undergone lumpectomy for right breast cancer and excision for left breast papilloma COMPARISON: 02/14/2024, 02/08/2023, 02/07/2022, 12/24/2020, 11/30/2020 TECHNIQUE: Synthesized CC and MLO projections of each breast. Tomosynthesis of each breast in the CC and MLO projections. ADDITIONAL IMAGING: Spot compression of the left breast 1 o'clock region in multiple projections using Tomosynthesis High-frequency linear transducer ultrasound of the left breast targeted to the area of clinical concern. Computer-aided detection was employed. (i CAD profound AI 3-D) TISSUE DENSITY: There are scattered areas of fibroglandular density. (BI-RADS category B) FINDINGS: MAMMOGRAPHY: RIGHT BREAST: There is architectural distortion. There are surgical clips. There are scattered asymmetries which are stable. No new suspicious right breast finding LEFT BREAST: There is postsurgical change. There are surgical clips present. A focal asymmetry in the 3 o'clock region was further evaluated with spot compression. No targetable or persistent suspicious abnormality. There are no suspicious findings in the 1 o'clock position. There is a stable low-density asymmetry in the deep upper outer left breast which is likely postsurgical. ULTRASOUND: LEFT BREAST The 3 o'clock region in the 1 o'clock region were examined with a high-frequency linear transducer. No suspicious mass. No suspicious area of altered echotexture. Specifically, there is no correlate to the focal asymmetry suggested on the initial screening imaging. Procedure Note Saul King MD - 10/01/2024 EXAM: DIAGNOSTIC MAMMOGRAPHY, BILATERAL ULTRASOUND: DIAGNOSTIC ULTRASOUND, UNILATERAL LEFT HISTORY: Abnormal clinical breast exam. Palpable abnormality 1 o'clockleft breast by provider The patient has undergone lumpectomy for right breast cancer and excisionfor left breast papilloma COMPARISON: 02/14/2024, 02/08/2023, 02/07/2022, 12/24/2020, 11/30/2020 TECHNIQUE: Synthesized CC and MLO projections of each breast.Tomosynthesis of each breast in the CC and MLO projections. ADDITIONAL IMAGING: Spot compression of the left breast 1 o'clock regionin multiple projections using Tomosynthesis High-frequency linear transducer ultrasound of the left breast targeted tothe area of clinical concern. Computer-aided detection was employed. (i CAD profound AI 3-D) TISSUE DENSITY: There are scattered areas of fibroglandular density.(BI-RADS category B) FINDINGS: MAMMOGRAPHY: RIGHT BREAST: There is architectural distortion. There are surgical clips. There are scattered asymmetries which are stable. No new suspicious right breast finding LEFT BREAST: There is postsurgical change. There are surgical clips present. A focal asymmetry in the 3 o'clock region was further evaluated with spotcompression. No targetable or persistent suspicious abnormality. There are no suspicious findings in the 1 o'clock position. There is a stable low-density asymmetry in the deep upper outer leftbreast which is likely postsurgical. ULTRASOUND: LEFT BREAST The 3 o'clock region in the 1 o'clock region were examined with ahigh-frequency linear transducer. No suspicious mass. No suspicious area of altered echotexture. Specifically, there is no correlate to the focal asymmetry suggested onthe initial screening imaging. IMPRESSION: Stable right breast findings consistent with previous lumpectomy. Noevidence of new or recurrent right breast cancer. Postoperative changes in the left breast. No persistent suspicious leftbreast finding. The patient should be managed on the basis of the clinical breast exam A negative mammogram in the presence of a clinically suspicious palpableabnormality does not preclude the possibility of malignancy or alter theindications for biopsy. ASSESSMENT: BI-RADS 2: BENIGN RECOMMENDATION(S): 1: The patient should be managed on the basis of the clinical breast exam.Continue screening. If there is any new or increasing palpable finding follow-up or repeatstudy may be helpful -------- FINAL REPORT -------- Dictated By: Saul King Dictated Date: 10/01/2024 14:28 ET Assigned Physician: Saul King Reviewed and Electronically Signed By: Saul King Signed Date: 10/01/2024 14:35 ET Workstation ID: [id number] Transcribed By: Self Edit Transcribed Date: 10/01/2024 14:28 ET us Huey Royal MD IMG BI PROCEDURES Final Resu lt * JOSE DEXA AXIAL SKELETON (07/06/2021 3:15 PM EDT) Anatomical Region Laterality Modality Mammography 07/06/2021 2:43 PM EDT Narrative 07/06/2021 3:15 PM EDT [facility] Diagnostic Imaging Department [address] [place] [id number] Patient: TATYANA WALDRON Socorro Malloy/Age/Sex: 1955 - 65 - F Unit#: [id number] Location/Status: SPDIMAM/REG CLI [facility] Ordering Physician: HUEY ROYAL MD Jose Dexa Axial Skeleton - 07/06/21 [id number] HISTORY: The patient is a 65-year-old postmenopausal female with clinical concern for metabolic bone disease. The patient has a recent history of right breast carcinoma. FINDINGS: Dual energy x-ray absorptiometry of the lumbar spine and femurs is performed. The mean bone mineral density at L1-L4 is 0.812 gm/cm2 which is 69% of that of young normals and 79% of that of age matched controls. This yields a T-score of -3.1 and a Z-score of -1.8 which is diagnostic of osteoporosis. The mean bone mineral density of the femurs bilaterally is 0.893 gm/cm2 which is 89% of that of young normals and 101% of that of age matched controls. This yields a T-score of -0.9 and a Z-score of 0.1 and there is therefore no evidence of osteoporosis or osteopenia here. However, the T-score of the right femoral neck is -1.9 and that of the left femoral neck is -1.8 which is diagnostic of osteopenia. IMPRESSION: 1. Osteoporosis. 2. FRAX analysis yields a 10-year probability of major osteoporotic fracture of 10.1% and a 10-year probability of hip fracture of 1.4%. Code 33663 Dictating Physician: ASTRID RUGGIERO MD Electronically Signed by: ASTRID RUGGIERO MD Dic Date/Time: 07/06/211513 Sign date/Time: 07/06/211514 Procedure Note Astrid Ruggiero MD - 09/07/2022 [facility] Diagnostic Imaging Department [address] [place] [address] Patient: YANNA WALDRONLexis Quintanilla D.O.B./Age/Sex: 1955 - 65 - F Unit#: [id number] Location/Status: [facility] CLI Mnemonic[facility] Ordering Physician: HUEY ROYAL MD [facility] Dexa Axial Skeleton - 07/06/21 - [id number] HISTORY: The patient is a 65-year-old postmenopausal female withclinical concern for metabolic bone disease. The patient has a recent history ofright breast carcinoma. FINDINGS: Dual energy x-ray absorptiometry of the lumbar spine and femursis performed. The mean bone mineral density at L1-L4 is 0.812 gm/cm2 which is69% of that of young normals and 79% of that of age matched controls. Thisyields a T-score of -3.1 and a Z-score of -1.8 which is diagnostic ofosteoporosis. The mean bone mineral density of the femurs bilaterally is 0.893 gm/ew3vaysu is 89% of that of young normals and 101% of that of age matched controls.This yields a T-score of -0.9 and a Z-score of 0.1 and there is therefore noevidence of osteoporosis or osteopenia here. However, the T-score of the rightfemoral neck is -1.9 and that of the left femoral neck is -1.8 which is diagnosticof osteopenia. IMPRESSION: 1. Osteoporosis. 2. FRAX analysis yields a 10-year probability of major osteoporoticfracture of 10.1% and a 10-year probability of hip fracture of 1.4%. Code 15296 Dictating Physician: ASTRID RUGGIERO MD Electronically Signed by: ASTRID RUGGIERO MD Dic Date/Time: 07/06/211513 Sign date/Time: 07/06/211514 Huey Royal MD IMG BI PROCEDURES Final Resu lt from Last 3 Months or Most Recently Relevant to Health Maintenance Insurance [employer] MEDICARE Care Teams Hand Sprayer Relationship Specialty Start Date End Date Kelly Lyons MD [address] [place] [phone] PCP - General Internal Medicine 09/30/24
== END 2025-04-03 13:17 | disposition home or self-care (01) ==
LOC: HO.HMCC 12:10
PROVIDERS: PCP Internal Medicine; Visit Provider Internal Medicine
DX: Z00.00 Encounter for general adult medical examination without abnormal findings (principal); I10 Essential (primary) hypertension; C50.919 Malignant neoplasm of unspecified site of unspecified female breast; G91.2 (Idiopathic) normal pressure hydrocephalus; I25.2 Old myocardial infarction; Z98.890 Other specified postprocedural states; M81.0 Age-related osteoporosis without current pathological fracture; E78.5 Hyperlipidemia, unspecified; D23.9 Other benign neoplasm of skin, unspecified; Z23 Encounter for immunization

== ENCOUNTER → 2025-04-03 12:09 | Outpatient (BNVA) | payer MEDICARE, SELFPAY | PROVIDERS: PCP Internal Medicine; Visit Provider Internal Medicine | DX: Z00.01 Encounter for general adult medical examination with abnormal findings (principal); Z23 Encounter for immunization; I10 Essential (primary) hypertension; M81.0 Age-related osteoporosis without current pathological fracture; R78.5 Finding of other psychotropic drug in blood; D23.9 Other benign neoplasm of skin, unspecified; I21.3 ST elevation (STEMI) myocardial infarction of unspecified site; G91.2 (Idiopathic) normal pressure hydrocephalus; Z98.890 Other specified postprocedural states; Z85.3 Personal history of malignant neoplasm of breast | CPT/HCPCS: 90471; 90677; 96127; 99397 ==